=== PATIENT | male | born 1940 | race Caucasian/White ===

== ENCOUNTER 2016-09-29 12:24 | Emergency (ER) | payer MEDICARE ==
[~2016-09-29] VITALS: Ht 180.3 cm; Wt 93.0 kg
[~2016-09-29 12:24] MED LIST: AMITRIPTYLINE10 MG PO; AMITRIPTYLINE25 MG PO; AMLODIPINE BESYL5 MG PO; AMLODIPINE5 MG PO; ASPIR; ASPIRIN81 M1 PO; AZILECT1 MG PO; CALCIUM 600600 M2 PO; CALCIUM600 M2 PO; CARBIDOPA & LEV1 TA1 PO; CARBIDOPA AND L1 TAB PO; CARVEDILOL25 MG PO; CARVEDILOL6.25 MG PO; CHOLESTYRAM4 GM/5 GM PO; CLARITIN10 MG PO; CLOPIDOGREL75 MG PO; COREG6.25 MG PO; DONNATAL1 CA1 PO; DOXYCYCLINE100 M3 PO; EPI EZ PEN1 MG/ML IM; FISH OIL; FLOMAX0.4 MG PO; HYDROCODONE BIT1 T11 PO; HYPOTHALMEX; LOMOTIL 0.025 M1 TAB PO; MEDROL DOSEPAK4 MG PO; METOCLOPRAMIDE10 MG PO; MIRAPEX0.125 MG PO; MIRAPEX1 MG PO; MIRAPEX1.5 MG PO; Metformin Hydr500 MG PO; NORCO 5-325 TA1 EACH PO; NORTRIPTYLINE10 MG PO; NORVASC10 MG PO; NOVAPLUS V0.09 MG/Ac INH; OMEPRAZOLE DR20 M1 PO; PANTOPRAZOLE SO40 MG PO; PREDNICOT20 MG PO; PREDNISONE10 MG PO; SIMVASTATIN40 MG PO; TAMSULOSIN HCL0.4 MG PO; VITAMIN B121000 MC1 PO; VITAMIN B121000 MC2 PO; ZANTAC15 MG/ML PO; ZETIA10 MG PO; ZOFRAN ODT4 MG SL
[2016-09-29 12:44] VITALS: BP 176/80
[2016-09-29] MEDS ORDERED: ULTRAM50 MG PO (14:55)
== END 2016-09-29 15:02 | disposition home or self-care (01) ==
LOC: ED 12:24
DX: M51.9 Unspecified thoracic, thoracolumbar and lumbosacral intervertebral disc disorder (principal); Z88.8 Allergy status to other drugs, medicaments and biological substances; Z79.82 Long term (current) use of aspirin; Z79.899 Other long term (current) drug therapy

== ENCOUNTER 2016-12-07 01:58 | Emergency (ER) | payer MEDICARE ==
[~2016-12-07] VITALS: Ht 177.8 cm; Wt 90.7 kg
[~2016-12-07 01:58] MED LIST changes: +ULTRAM50 MG PO
[2016-12-07] MEDS ORDERED: CALCIUM + VIT1 EACH PO (02:10)
[2016-12-07] MEDS ORDERED: ATORVASTATIN CA10 M1 PO (02:11)
[2016-12-07 02:12] VITALS: BP 153/67
[2016-12-07] MEDS ORDERED: ZANTAC 150150 MG PO (02:12)
[2016-12-07] MEDS ORDERED: NAPROSYN EC375 MG PO (03:27)
== END 2016-12-07 04:12 | disposition home or self-care (01) ==
LOC: ED 01:58
DX: S60.221A Contusion of right hand, initial encounter (principal); Z95.0 Presence of cardiac pacemaker; Z90.49 Acquired absence of other specified parts of digestive tract; Z86.73 Personal history of transient ischemic attack (TIA), and cerebral infarction without residual deficits; I25.10 Atherosclerotic heart disease of native coronary artery without angina pectoris; I50.9 Heart failure, unspecified; I11.0 Hypertensive heart disease with heart failure; K21.9 Gastro-esophageal reflux disease without esophagitis; E78.5 Hyperlipidemia, unspecified; Z88.8 Allergy status to other drugs, medicaments and biological substances; Z79.82 Long term (current) use of aspirin; Z79.899 Other long term (current) drug therapy; W18.09XA Striking against other object with subsequent fall, initial encounter; Y93.89 Activity, other specified; Y92.9 Unspecified place or not applicable; Y99.9 Unspecified external cause status

== ENCOUNTER 2016-12-16 18:22 | Emergency (ER) | payer MEDICARE ==
[~2016-12-16] VITALS: Ht 177.8 cm; Wt 90.7 kg
[~2016-12-16 18:22] MED LIST changes: +ATORVASTATIN CA10 M1 PO; +CALCIUM + VIT1 EACH PO; +NAPROSYN EC375 MG PO; +ZANTAC 150150 MG PO
[2016-12-16 18:26] VITALS: BP 166/75
[2016-12-16] MEDS ORDERED: IBU800 MG PO (20:14)
== END 2016-12-16 20:25 | disposition home or self-care (01) ==
LOC: ED 18:22
DX: S40.011A Contusion of right shoulder, initial encounter (principal); M19.011 Primary osteoarthritis, right shoulder; I25.10 Atherosclerotic heart disease of native coronary artery without angina pectoris; I11.0 Hypertensive heart disease with heart failure; I50.32 Chronic diastolic (congestive) heart failure; E78.5 Hyperlipidemia, unspecified; K21.9 Gastro-esophageal reflux disease without esophagitis; G20 Parkinson's disease; E11.9 Type 2 diabetes mellitus without complications; Z86.73 Personal history of transient ischemic attack (TIA), and cerebral infarction without residual deficits; Z85.46 Personal history of malignant neoplasm of prostate; Z96.89 Presence of other specified functional implants; Z88.8 Allergy status to other drugs, medicaments and biological substances; Z79.82 Long term (current) use of aspirin; Z79.899 Other long term (current) drug therapy

== ENCOUNTER 2017-01-08 00:06 | Emergency (ER) | payer MEDICARE ==
[~2017-01-08] VITALS: Ht 177.8 cm; Wt 90.7 kg
[~2017-01-08 00:06] MED LIST changes: +IBU800 MG PO
[2017-01-08 00:15] VITALS: BP 177/58
== END 2017-01-08 01:40 | disposition home or self-care (01) ==
LOC: ED 00:06
DX: S80.212A Abrasion, left knee, initial encounter (principal); Z88.8 Allergy status to other drugs, medicaments and biological substances; Z79.82 Long term (current) use of aspirin; Z79.899 Other long term (current) drug therapy; W19.XXXA Unspecified fall, initial encounter; Y93.89 Activity, other specified; Y92.89 Other specified places as the place of occurrence of the external cause; Y99.8 Other external cause status

== ENCOUNTER → 2017-01-22 | Outpatient (CLI) | payer MEDICARE ==
[2017-01-22 13:01] LABS: SGOT/AST 38 IU/L (3-35); SGPT/ALT 33 U/L (12-78)
[2017-01-22 13:04] LABS: CHOLESTEROL 116 mg/dL (<200); HDL CHOLESTEROL 43 mg/dl (40-60); LDL CHOLESTEROL 48 mg/dL (9-159); TRIGLYCERIDES 125 mg/dl (<150); VLDL CHOLESTEROL 25 mg/dL (6-40)
== END | disposition home or self-care (01) ==
LOC: LAB 11:47
PROVIDERS: Internal Medicine Interventional Cardiology
DX: E78.2 Mixed hyperlipidemia (principal)

== ENCOUNTER 2017-01-28 23:21 | Emergency (ER) | payer MEDICARE ==
[~2017-01-28] VITALS: Ht 180.3 cm; Wt 90.7 kg
[2017-01-28 23:34] VITALS: BP 186/62
== END 2017-01-29 00:29 | disposition home or self-care (01) ==
LOC: ED 23:21
DX: S21.139A Puncture wound without foreign body of unspecified front wall of thorax without penetration into thoracic cavity, initial encounter (principal); X58.XXXA Exposure to other specified factors, initial encounter; Y93.89 Activity, other specified; Y92.89 Other specified places as the place of occurrence of the external cause; Y99.8 Other external cause status; Z88.8 Allergy status to other drugs, medicaments and biological substances; Z79.82 Long term (current) use of aspirin; Z79.899 Other long term (current) drug therapy

== ENCOUNTER 2017-02-08 19:13 | Emergency (ER) | payer MEDICARE ==
[~2017-02-08] VITALS: Ht 180.3 cm; Wt 90.7 kg
[2017-02-08 19:39] VITALS: BP 114/53
== END 2017-02-08 20:34 | disposition home or self-care (01) ==
LOC: ED 19:13
DX: S61.011A Laceration without foreign body of right thumb without damage to nail, initial encounter (principal); I25.10 Atherosclerotic heart disease of native coronary artery without angina pectoris; I11.0 Hypertensive heart disease with heart failure; I50.9 Heart failure, unspecified; K21.9 Gastro-esophageal reflux disease without esophagitis; E78.5 Hyperlipidemia, unspecified; Z85.46 Personal history of malignant neoplasm of prostate; Z86.73 Personal history of transient ischemic attack (TIA), and cerebral infarction without residual deficits; Z98.890 Other specified postprocedural states; Z90.49 Acquired absence of other specified parts of digestive tract; Z95.0 Presence of cardiac pacemaker; Z79.899 Other long term (current) drug therapy; Z79.82 Long term (current) use of aspirin; M19.011 Primary osteoarthritis, right shoulder; Z88.8 Allergy status to other drugs, medicaments and biological substances; W26.0XXA Contact with knife, initial encounter; Y93.89 Activity, other specified; Y92.89 Other specified places as the place of occurrence of the external cause; Y99.9 Unspecified external cause status

== ENCOUNTER → 2017-02-14 | Outpatient (CLI) | payer MEDICARE | END | disposition home or self-care (01) | LOC: RAD 11:50 | DX: R06.02 Shortness of breath (principal); I10 Essential (primary) hypertension; Z95.2 Presence of prosthetic heart valve; Z95.0 Presence of cardiac pacemaker; Z86.79 Personal history of other diseases of the circulatory system ==

== ENCOUNTER 2017-03-09 12:52 | Emergency (ER) | payer MEDICARE ==
[~2017-03-09] VITALS: Wt 90.7 kg
[2017-03-09 13:01] VITALS: BP 118/59
== END 2017-03-09 14:27 | disposition home or self-care (01) ==
LOC: ED 12:52
DX: S50.02XA Contusion of left elbow, initial encounter (principal); S50.12XA Contusion of left forearm, initial encounter; Z88.8 Allergy status to other drugs, medicaments and biological substances; Z79.82 Long term (current) use of aspirin; Z79.899 Other long term (current) drug therapy; W19.XXXA Unspecified fall, initial encounter; Y93.9 Activity, unspecified; Y92.9 Unspecified place or not applicable; Y99.9 Unspecified external cause status

== ENCOUNTER 2017-05-06 19:10 | Inpatient (IN) | payer MEDICARE ==
[~2017-05-06] VITALS: Ht 177.8 cm; Wt 89.4 kg
[2017-05-06 19:22] VITALS: BP 134/59
[2017-05-06 20:21] VITALS: BP 139/66
[2017-05-06 20:33] LABS: BASO % 0.4 % (0.0-1.0); EOS # 0.7 10*3/uL (0.0-0.4); EOS % 9.4 % (1.0-4.0); HEMATOCRIT 32.5 % (42.0-52.0); LYMPH # 1.9 10*3/uL (1.3-4.4); LYMPH % 24.3 % (27.0-41.0); MEAN CELL VOLUME 70.2 fl (80.0-94.0); MEAN CORPUSCULAR HGB 21.6 pg (27.0-31.0); MEAN CORPUSCULAR HGB CONC 30.8 g/dl (33.0-37.0); MEAN PLATELET VOLUME 9.3 fl (9.6-12.3); MONO # 0.7 10*3/uL (0.1-1.0); MONO % 9.6 % (3.0-9.0); NEUT # 4.3 10*3/uL (2.3-7.9); PLATELET COUNT AUTOMATED 253 10*3/uL (130-400); RED BLOOD COUNT 4.63 10*6/uL (4.50-5.90); RED CELL DISTRI WIDTH 17.3 % (0-14.5); WHITE BLOOD COUNT 7.7 10*3/uL (4.8-10.8)
[2017-05-06 20:49] LABS: ALBUMIN 3.6 gm/dl (3.1-4.5); ALKALINE PHOSPHATASE 96 U/L (45-117); BUN 8 mg/dl (7-24); CHLORIDE 102 mmol/L (98-107); CREATININE 0.73 mg/dL (0.70-1.30); POTASSIUM 3.9 mmol/L (3.5-5.1); SGOT/AST 23 IU/L (3-35); SGPT/ALT 15 U/L (12-78); SODIUM 138 mmol/L (136-145); TOTAL PROTEIN 6.5 gm/dL (6.4-8.2)
[2017-05-06 21:08] LABS: BILIRUBIN NEGATIVE (NEGATIVE); BLOOD NEGATIVE (NEGATIVE); CLARITY CLEAR (CLEAR); COLOR YELLOW (YELLOW); GLUCOSE NEGATIVE (NEGATIVE); KETONE NEGATIVE (NEGATIVE); LEUKO ESTERASE NEGATIVE (NEGATIVE); NITRITE NEGATIVE (NEGATIVE); SPECIFIC GRAVITY <= 1.005 (1.005-1.030); UROBILINOGEN 0.2 E.U./dl (0.2-1.0)
[2017-05-06 21:21] LABS: RBC 0-2 rbc/hpf (0-2); WBC 0-2 wbc/hpf (0-5)
--- NOTE | 2017-05-06 21:26 | NUR ---
3CM CLOSED LACERATION TO OCCIPITAL AREA WITH DRIED
[2017-05-06 22:55] VITALS: BP 138/61
[2017-05-06 23:45] VITALS: BP 150/69
--- NOTE | 2017-05-07 00:23 | NUR ---
PT HAS ABRASIONS ON BLE AND SMALL ABRASION ON CHEST. NO OTHER WOUNDS NOTED
[2017-05-07 00:30] VITALS: BP 184/86
--- NOTE | 2017-05-07 00:30 | NUR ---
A 77, admitted to 5E, under the services of ELOY Hwang DO with a diagnosis of FALL. Chief complaint is FALL. Patient arrived via bed from ER. Monitor applied. Initial assessment completed. Vital signs taken and recorded. ELOY HWANG DO notified of admission to the unit. Orders received. See assessment for past medical history, medications and allergies. Patient and/or family oriented to unit. visitation policy reviewed. Clothing/patient valuable form completed. POOJA SHORT
--- NOTE | 2017-05-07 00:46 | NUR ---
PT HAS CLOSED LACERATION TO BACK OF HEAD, PICTURE TAKEN. PT ALSO HAS MULTIPLE SCABBED AREAS TO BLE AND SCABBED AREA TO CENTER OF CHEST. NO PICTURES OF THESE TAKEN. SEE WOUND ASSESSMENT SCREEN
[2017-05-07] MEDS ORDERED: VITAMIN D31000 UNI1 PO (01:27)
[2017-05-07] MEDS ORDERED: MIRALAX POWDER255 G1 PO (01:27)
[2017-05-07] MEDS ORDERED: VESICARE5 MG PO (01:28)
[2017-05-07] MEDS ORDERED: NORTRIPTYLINE H10 M1 PO (01:29)
[2017-05-07] MEDS ORDERED: CALCIUM500 M1 PO (01:30)
--- NOTE | 2017-05-07 01:31 | NUR ---
MED REC UP TO DATE PER PT MED LIST
--- NOTE | 2017-05-07 01:36 | NUR ---
DR STAPLES MADE AWARE THAT MED REC UP TO DATE AND PT HAS NOT RECEIVED PM MEDICATIONS. PT TAKES COREG AT HOME AND BP 184/86. ALSO MADE HIM AWARE OF PT WOUNBDS, NO WOUND CARE ORDERS RECEIVED. ORDER RECEIVED TO GIVE PT DOSE OF HOME COREG NOW.
--- NOTE | 2017-05-07 02:57 | NUR ---
PO COREG GIVEN PER DR STAPLES ORDERS AT THIS TIME. MED TAKEN WHOLE IN PUDDING WITHOUT DIFFICULTY.
[2017-05-07 04:00] VITALS: BP 124/62
--- NOTE | 2017-05-07 04:00 | NUR ---
BP RECHECK 124/62
[2017-05-07 06:41] LABS: BASO % 0.4 % (0.0-1.0); EOS # 0.7 10*3/uL (0.0-0.4); EOS % 9.6 % (1.0-4.0); HEMATOCRIT 30.6 % (42.0-52.0); HEMOGLOBIN 9.1 g/dl (14.0-18.0); LYMPH # 1.9 10*3/uL (1.3-4.4); LYMPH % 25.8 % (27.0-41.0); MEAN CELL VOLUME 70.2 fl (80.0-94.0); MEAN CORPUSCULAR HGB 20.9 pg (27.0-31.0); MEAN CORPUSCULAR HGB CONC 29.7 g/dl (33.0-37.0); MEAN PLATELET VOLUME 9.1 fl (9.6-12.3); MONO # 0.8 10*3/uL (0.1-1.0); MONO % 10.8 % (3.0-9.0); NEUT % 53.1 % (47.0-73.0); PLATELET COUNT AUTOMATED 241 10*3/uL (130-400); RED BLOOD COUNT 4.36 10*6/uL (4.50-5.90); RED CELL DISTRI WIDTH 17.2 % (0-14.5); WHITE BLOOD COUNT 7.4 10*3/uL (4.8-10.8)
[2017-05-07 07:01] LABS: ACT PARTIAL THROMBO TIME 24.4 SECONDS (20.8-31.5)
[2017-05-07 07:05] LABS: BUN 7 mg/dl (7-24); CHLORIDE 102 mmol/L (98-107); CREATININE 0.62 mg/dL (0.70-1.30); POTASSIUM 3.7 mmol/L (3.5-5.1); SODIUM 138 mmol/L (136-145)
[2017-05-07 07:11] LABS: THYROID STIM HORMONE (HS) 0.902 uIU/ml (0.358-4.75)
--- NOTE | 2017-05-07 07:42 | NUR ---
Shift chart check completed.
[2017-05-07 07:50] LABS: VITAMIN D, 25-HYDROXY 27.6 ng/mL (30-100)
[2017-05-07 08:00] VITALS: BP 145/61
--- NOTE | 2017-05-07 09:00 | NUR ---
Brush Cutter in to talk to patient. Patient states lives at home with and daughter. There are fe steps in the home. Physician: ritika pearson Pharmacy: [facility] health services: none Patient's level of ADLs: MINIMAL ASSIST Patient has working utilities: all working DME: walker, electric scooter Follow-up physician's appointment after d/c: will be made by hospitalist nurse director upon discharge Does patient want to access PORTAL?: no Discharge plan discussed with patient and daughter, patient lives at home with and daughter, uses an electri scooter or walker, patient has had a fall at home and would like to go to [place] for rehab prior to going back home, marriage and family social worker will make referral. HARITHA BERRIOS
--- NOTE | 2017-05-07 09:08 | NUR ---
MEDS VERIFIED WITH JAILYN AT [facility]
--- NOTE | 2017-05-07 09:11 | NUR ---
NOTIFIED DR STAPLES THAT MEDS WERE VERIFIED AND THAT THE DOSAGE WAS CHANGED ON THE COREG.
--- NOTE | 2017-05-07 10:00 | NUR ---
SPOKE WITH DR MCFARLANE. ADVISED HIM THAT PATIENT'S HOME MEDS WERE VERIFIED AND HAVE NOT BEEN ORDERED YET. HE IS ALSO AWARE THAT COREG DOSE IS DIFFERENT THEN WHAT IS CONTINUED. HE STATED HE WOULD ORDER HOME MEDS SHORTLY.
[2017-05-07 12:00] VITALS: BP 152/55
--- NOTE | 2017-05-07 12:18 | NUR ---
PHYSICAL THERAPY PAtient evaluated on 5, full evaluation to follow. Continue [facility] PT as per plan of care with fall, Parkinsons, recent fall at home with closed head injury and decreased safety precautions. May benfit from SNF for impaired mobility in order to return to home safely at [facility]. PAtient is high complexity via chart review, tests and evaluation: 30960. Thank you for this referral. Ellen Braswell,PT
--- NOTE | 2017-05-07 13:15 | NUR ---
NORMA JAIN [id number] Please refer to the physician's history and physical for past medical history, comorbid conditions, and allergies. Diagnosis: FALL CAUSE OF ACCIDENTAL INJURY AT HOME PLAC Arnoldo Score: 14,MODERATE RISK WOUND DESCRIPTIONS: Location of the wound: OCCIPITAL HEAD Type of wound: TRAUMATIC Thickness: Partial Size: 0.2cm x 2.3cm x 0.1cm Tunneling: none Undermining: none Sinus Tract: none Presence of Exudate: Serous Amount: Light Color: Red Odor: None Periwound Skin Appearance: Normal Wound edges: approximated Pain (associated with wound): patient denied pain at time of assessment How does patient state this happened? Patient stated he fell backwards at home Patient stated when he fell he had a "splinter and just ripped it out" in his left forearm. Patient stated this area did not bleed when he took out the "splinter." This nurse unable to visualize area due to IV dressing intact. Patient has four scabbed areas to his mid chest and patient stated they are itchy. Surface the patient is resting on: Isoflex SKIN PREVENTION RECOMMENDATION: 1. Pressure redistribution support surface as appropriate 2. Elevate heels 3. Remove boots/TEDS every shift and reapply 4. Head of bed 30 degrees as tolerated 5. Assess nutrition and hydration 6. Manage moisture 7. Avoid the use of containment devices while in bed 8. Use absorptive products on surfaces limit layers of linens on bed 9. Turn and reposition every 1-2 hours in bed and every 1 hour in chair as tolerated 10. Weight shifts every 15 minutes while up in chair 11. Offloading with pillows or device to keep heels elevated off bed 12. Monitor skin at least every shift 13. Inspect under medical devices twice a day WOUND TREATMENT RECOMMENDATIONS: Antibiotic ointment and left open to air. Hydrocortizone cream to itchy area on chest.
--- NOTE | 2017-05-07 14:09 | NUR ---
Occupational Therapy evaluation completed on 5 with full eval to follow. Precautions include fall risk, parkinsons,ww use,moderate complexity level. Recommend OT per POC to address self care, safety w/ ww, functional transfers, standing tolerance and EC/WS education and SNF upon d/c to enable safe return home with . Thank you for this referral. Kayce Liang OTR/L
--- NOTE | 2017-05-07 14:46 | NUR ---
NOTIFIED DR STAPLES THAT HOME MEDS STILL NOT VERIFIED
--- NOTE | 2017-05-07 14:49 | NUR ---
DR STAPLES NOTIFIED THAT PATIENT'S HOME MEDS STILL NOT ORDERED
--- NOTE | 2017-05-07 15:31 | NUR ---
PATIENT SEEN 1:1 OT THIS DATE 20 MINUTES. PATIENT IDENTIFIED BY NAME AND DATE OF . PATIENT IN BED AND WILLING TO COMPLETE THERAPY TO TOLERANCE THIS DATE. PATIENT COMPLETED SUPINE TO SIT SBA AND SIT TO STAND MIN A X 1 AND CGA X 5 FROM BED WITH MOD VERBAL CUES TECH/FORM. PATIENT IMPULSIVE AND REQUIRES VERBAL INSTRUCTION FOR FALL PREVENTION AND SAFETY. PATIENT COMPLETED FUNCTIONAL AMBULATION USE FWW SHORT DISTANCE TO BATHROOM CGA AND BACK TO BED WITH MIN A MANAGING FWW WITH TURNS. PATIENT COMPLETED STAND TOLERANCE ACTIVITY USE FWW SUPPORT APPROX 4 MINUTES REACHING OVER HEAD ONE UE AT A TIME. PATIENT COMPLETED SIT TO SUPINE BED SBA WITH MIN VERBAL CUES TECH/FORM USE RAILS TO SCOOT SELF UP IN BED. PATIENT WITH NO OTHER NEEDS VERBALIZED. BED ALARM SET. ANDI VEGA
--- NOTE | 2017-05-07 15:44 | NUR ---
REFERAL MADE TO JAILYN AT [facility].
[2017-05-07 16:00] VITALS: BP 182/74
--- NOTE | 2017-05-07 16:25 | NUR ---
NOTIFIED DR NICHOLS THAT PATIENT'S FAMILY IS REQUESTING HIS PARKINSON'S MEDICATION. ADVISED HER THAT FAMILY STATED THEY WOULD BRING IT FROM HOME. SHE STATED THAT WOULD BE FINE. NOTIFIED FAMILY. THEY ARE GOING HOME TO GET IT NOW.
--- NOTE | 2017-05-07 19:56 | NUR ---
PATIENT AWAKE IN BED, ALERT AND ORIENTED X3 AT THIS TIME. PATIENT DENIES ANY PAIN ASSOCIATED WITH HEAD LACERATION. NO COMPLAINTS VERBALIZED. WILL MONITOR. CALL LIGHT USE ENCOURAGED. CALL LIGHT IN REACH. BED ALARM INTACT.
[2017-05-07 20:00] VITALS: BP 158/56
[2017-05-08] VITALS: BP 151/67
--- NOTE | 2017-05-08 04:13 | NUR ---
PATIENT ASLEEP IN BED AT THIS TIME. RESPIRATIONS EASY. NO S/S OF DISTRESS NOTED. ON ROOM AIR. CALL LIGHT LEFT IN REACH. BED ALARM INTACT.
[2017-05-08 07:00] LABS: BASO % 0.4 % (0.0-1.0); EOS # 0.7 10*3/uL (0.0-0.4); HEMATOCRIT 31.7 % (42.0-52.0); HEMOGLOBIN 9.7 g/dl (14.0-18.0); LYMPH # 2.3 10*3/uL (1.3-4.4); LYMPH % 28.2 % (27.0-41.0); MEAN CELL VOLUME 70.4 fl (80.0-94.0); MEAN CORPUSCULAR HGB 21.6 pg (27.0-31.0); MEAN CORPUSCULAR HGB CONC 30.6 g/dl (33.0-37.0); MEAN PLATELET VOLUME 10.2 fl (9.6-12.3); MONO # 0.9 10*3/uL (0.1-1.0); MONO % 11.5 % (3.0-9.0); NEUT # 4.1 10*3/uL (2.3-7.9); NEUT % 50.5 % (47.0-73.0); PLATELET COUNT AUTOMATED 260 10*3/uL (130-400); RED CELL DISTRI WIDTH 17.3 % (0-14.5)
[2017-05-08 07:25] LABS: BUN 9 mg/dl (7-24); CHLORIDE 101 mmol/L (98-107); CREATININE 0.66 mg/dL (0.70-1.30); POTASSIUM 3.5 mmol/L (3.5-5.1); SODIUM 138 mmol/L (136-145)
--- NOTE | 2017-05-08 07:45 | NUR ---
Shift chart check completed.
[2017-05-08 08:00] VITALS: BP 142/62; BP 166/70
--- NOTE | 2017-05-08 08:00 | NUR ---
PT SLEEPING EASILY AWAKEN A&O X 3. ELEAZAR [facility] [facility]. VERY PLEASANT AND SMILING. LACERATION ON BACK OG THE HEAD FROM HIS FALL AT HOME IS SCAPPED OVER, NO REDNESS, NO DRAINAGE. LACERATION ON ABDOMEN PINK, SCAPPING, NO DRAINAGE. OLD SCRAPS AND SCABD ON LOWER EXTERMITIES NO DRAINAGE, NO REDNESS. NO C/O PAIN AT THIS TIME. CONTINUE TO ASSESS NATALEE CHRISTIE
--- NOTE | 2017-05-08 08:30 | NUR ---
PATIENT IS RESTING IN BED. HE DENIES ANY PAIN OR DISCOMFORT. PATIENT HAS A STUDENT NURSE FROM [facility] TODAY. PATIENT IS A&OX3 WITH PERIODS OF FORGETFULLNESS. PATIENT DENIES ANY SOB. ROOM AIR. DENIES ANY CP. NO EDEMA. PPP. PATIENT HAS NORMOACTIVE BOWEL SOUNDS. DENIES ANY DYSURIA. HAS URINAL AT BEDSIDE. USES BR WITH ASSIST TIMES ONE. DOES HAVE A SHUFFLED GAIT. PATIENT HAS A SMALL LACERATION TO THE BACK OF HIS HEAD WITH MINIMAL DRAINAGE. HE ALSO HAS A SMALL AREA OF IRRITATION TO HIS CHEST. WILL CONTINUE TO MONITOR.
--- NOTE | 2017-05-08 08:51 | NUR ---
PHYSICAL THERAPY Patient presented to therapy with report of feeling better and wanting to do therapy. Patient performed supine to sitting at EOB and sit to stand transfers with SBA. Patient performed gait with W/W and CGA X 1 for 210' x 1. Patient then sat at EOB and performed seated ther ex for strengthening the bilateral UEs and LEs x 10 each exercise in all planes of movement. Patient's breakfast arrived and therapy was stopped. Patient was left in seated position in bedside chair with body alarm attached to patient. Patient tolerated ther ex and gait well with no significant LOB with gait or standing ther ex. Patient was 1:1 with this AUTO SELF SERVICE STATION ATTENDANT for 25 minutes total. Junito Hill AUTO SELF SERVICE STATION ATTENDANT 05/08/2017
--- NOTE | 2017-05-08 09:00 | NUR ---
case management visits with patient, patient will be going to [facility] when medically stable, he will need a three night stay and will be eligible to go on 05/09/17
--- NOTE | 2017-05-08 10:00 | NUR ---
PT A&O X3 VERY PLESANT CLEANED LACERATION ON THE BACK OF HIS HEAD WITH NS AND APPLIED NEOSPORIN. CLEANED LACERATION ON ABDOMEN WITH N/S AND APPLIED HYDROCORTISO CREME. NO C/O OF PAIN AT THIS TIME CONTIUNE TO MILAGROS ALBRIGHT CALL SPN
--- NOTE | 2017-05-08 11:10 | NUR ---
PATIENT SEEN 1:1 OT THIS DATE 26 MINUTES. PATIENT IDENTIFIED BY NAME AND DATE OF . PATIENT COMPLETED SIT TO STAND RECLINER CGA WITH MIN VERBAL CUES TECHNIQUE. PATIENT COMPLETED FUNCTIONAL AMBULATION USE FWW TO BATHROOM CGA WITH VERBAL CUES INCREASE STRIDE SECONDARY SHUFFLE STEP. PATIENT COMPLETED STAND TO SIT TOILET CGA WITH VERBAL CUES TO EASE SELF TO SITTING POSITION USE GRAB BAR. COMPLETED TOILETING MIN A WITH EDUCATION USE FWW FOR UE SUPPORT STANDING COMPONENTS. PATIENT COMPLETED STANDING AT SINK WASH HANDS CGA AND AMBULATED TO RECLINER USE FWW WITH MIN VERBAL CUES SAFETY USE FWW AND INCREASE TIME NEGOTIATING TURNS. PATIENT COMPLETED STAND TOLERANCE ACTIVITY THIS DATE WITH DYNAMIC ACTIVITY 5 MINUTES USE FWW SUPPORT. PATIENT SEATED RECLINER WITH CHAIR ALARM AND CALL LIGHT WITHIN REACH. NO FURTHER NEEDS VERBALIZED. ANDI VEGA
[2017-05-08 12:00] VITALS: BP 110/63
[2017-05-08] MEDS ORDERED: VITAMIN D31000 UNI1 PO (12:32)
[2017-05-08] MEDS ORDERED: COREG12.5 M1 PO (12:32)
--- NOTE | 2017-05-08 13:34 | NUR ---
PHYSICAL THERAPY Rolf was seen this PM 1:1 for his physical therapy session. Pt was sitting up in his bedside chair, body alarm on. With verbal cueing transfer sit/stand MOD A X 1, standing balance with wheele walker CGA X 1. Then gait with wheeled walker 195' X 1, with MIN OUTSIDE SOLAR SALES CONSULTANT X 1, verbal cueing for gait, walker turn safety with slight parkinsons gait on his right hand turn not left. Pt back up in his bedside chair, and daughter present to visit, body alarm on, Pt with call light and phone. JOSEY ALVAREZ TIP TESTER.
[2017-05-08 16:00] VITALS: BP 129/53
[2017-05-08 20:00] VITALS: BP 148/55
--- NOTE | 2017-05-08 21:38 | NUR ---
PATIENT MEDICATED WITH PO TYLENOL AND PO RESTORIL PER PRN ORDER FOR C/O HEADACHE AND SLEEPLESSNESS. WILL MONITOR EFFECTIVENESS. LACERATION TO BACK OF HEAD CLEANED AT THIS TIME PER PATIENT REQUEST. NEOSPORIN APPLIED PER ORDER. WILL MONITOR. PATIENT REPOSITIONED IN BED. BED LEFT LOCKED IN LOW POSITION, CALL LIGHT IN REACH, BED ALARM INTACT.
--- NOTE | 2017-05-08 22:23 | NUR ---
EARLIER MEDICATION APPEARS EFFECTIVE. PATIENT ASLEEP IN BED AT THIS TIME. RESPIRATIONS EASY, NO S/S OF DISTRESS NOTED. CALL LIGHT LEFT IN REACH. BED ALARM INTACT.
[2017-05-09] VITALS: BP 134/63
--- NOTE | 2017-05-09 03:52 | NUR ---
PATIENT ASSISTED TO USE URINAL AT THIS TIME AND ASSISTED BACK TO BED. BED LEFT LOCKED IN LOW POSITION, BED ALARM INTACT, CALL LIGHT LEFT IN REACH.
--- NOTE | 2017-05-09 05:50 | NUR ---
WOUND PHOTOS TAKEN AT THIS TIME FOR ANTICIPATED DISCHARGE TODAY.
--- NOTE | 2017-05-09 07:30 | NUR ---
PT A&OX3 VERY PLEASANT, EASILY DIRECTED, ELEAZAR, VS STABLE AT THE TIME OF ASSESSMENT. HEART SOUNDS NORMAL. PULSE REGULAR AND STRONG. RESP WAS NON LABORED LUNGS CLEAR BUT DIMISHED THROUGH OUT. SKIN TURGOR GOOD, SKIN PINK WARM TO TOUCH, ABD SOFT NON-DISTENED NON-TENDER. SMALL LACERATON ON THE BACK OF HIS HEAD IS SCABBED OVER, NO DRAINAGE, NO REDNESS. ABDOMEN SCRAP IS PINK TISSUE, NO DRAINAGE, SCABBING OVER. OLD SCRAPS AND SCABS ON LOWER EXTERMITES NO REDNESS, NO DRAINAGE. KNEE HIGH NAM HOSE ON PT C/O NO PAIN AT THIS TIME CONTIUNE TO ASSESS. NATALEE CALL SPN
[2017-05-09 08:00] VITALS: BP 152/70
--- NOTE | 2017-05-09 08:00 | NUR ---
PT RESTING UP IN CHAIR, EATING BREAKFAST AT THIS TIME, NO DISTRESS NOTED. PT DENIES ANY COMPLAINTS. LUNG SOUNDS CLEAR, NO SOB NOTED, ON ROOM AIR, PT DOES STATE A NON-PROD COUGH. NORMO BS X4 QUADS, DENIES N/V/D. NO EDEMA NOTED TO LOWER LEGS, NAM HOSE INTACT. LACERATION NOTED TO BACK OF HEAD, NO DRAINAGE NOTED. PT DENIES ANY PAIN. BODY ALARM INTACT. CALL LIGHT WITHIN REACH.
--- NOTE | 2017-05-09 08:38 | NUR ---
OCCUPATIONAL THERAPY CO-SIGN I approve of the Occupational Therapy notes written above. DEON MORALES OTR/Jovita
--- NOTE | 2017-05-09 10:00 | NUR ---
PT A&O X3 SITTING IN HIS CHAIR AFTER GETTING A SHOWER VERY PLEASANT. CLEANED SMALL LACERATION ON THE BACK OF HIS HEAD WITH NS AND APPLIED NEOSPORIN. CLEANED SMALL CUTS ON HIS ABDOMEN WITH NS AND APPLIED HYDROCORTISON CREME. PT C/O OF NO PAIN, DENIES ANY CHEST PAIN. LEG PAIN. CONTIUNE TO ASSESS NATALEE CALL SPN
--- NOTE | 2017-05-09 11:10 | NUR ---
PHYSICAL THERAPY Patient was sitting up EOB upon therapist arrival for am therapy visit, reporting no new c/o's. Patient transfers all SBA x 1 and ambulates with use of wh walker, 100'x 2, demonstrating increased velocity and impulsive behavior at times resulting in Poor walker navigation / safety. Patient also completed both 90 / 180 degree turns with use of wh walker, demonstrating bouts of "freezing" and needed v/c to improve safety awareness. Patient returned to bedside chair under nursing assoc Supervision, awaiting to be showered and will continue per POC as tolerated. Winston Conner, COMMUNICATIONS DEPARTMENT CHAIR
[2017-05-09 12:00] VITALS: BP 123/55
--- NOTE | 2017-05-09 12:05 | NUR ---
FLOOR NOTIFIED CM THAT PT WAS BEING DISCHARGED AT 1PM. SW NOTITIFED OF AUTO OVERHAULER TIME AND PT. SW NOTIFIED [facility] THAT PT WAS BEING DISCHARGED AT 1PM.
--- NOTE | 2017-05-09 12:08 | NUR ---
[facility] SAID OK TO DISCHARGE TIME.
[2017-05-09 13:07] VITALS: BP 126/58
--- NOTE | 2017-05-09 13:10 | NUR ---
NUR[facility]
--- NOTE | 2017-05-09 13:50 | NUR ---
Discharge instructions reviewed with patient/family. Patient receptive and verbalizes understanding. Follow-up care arranged. Written instructions given to patient/family. [facility] accompanied by family. NATALEE STINSON
--- NOTE | 2017-05-09 14:02 | NUR ---
Discharge instructions reviewed with patient/family. Patient receptive and verbalizes understanding. Follow-up care arranged. Written instructions given to patient/family. HEP LOCK REMOVED NO BLEEDING. PACKET GIVEN TO . DISCHAGRED VIA W/C CONDITION STABLE NATALEE CHRISTIE
--- NOTE | 2017-05-10 07:53 | NUR ---
PHYSICAL THERAPY CO-SIGN I approve of the Phyical Therapy notes written above. NINA CUNHA PT
== END 2017-05-09 13:50 | disposition other institution (70) | DRG 605 ==
LOC: ED 19:10 → 5E 23:50 → EDHOLD 23:50 → 5E 05-07 00:07
PROVIDERS: Emergency Medicine Emergency Medical Services; Hospitalist; Internal Medicine; ADMIT Internal Medicine
DX: S00.03XA Contusion of scalp, initial encounter (principal); E67.8 Other specified hyperalimentation; E87.2 Acidosis; G20 Parkinson's disease; I50.32 Chronic diastolic (congestive) heart failure; R73.9 Hyperglycemia, unspecified; D50.9 Iron deficiency anemia, unspecified; K21.9 Gastro-esophageal reflux disease without esophagitis; C61 Malignant neoplasm of prostate; Z95.0 Presence of cardiac pacemaker; E55.9 Vitamin D deficiency, unspecified; W18.39XA Other fall on same level, initial encounter; R29.6 Repeated falls; M51.36 Other intervertebral disc degeneration, lumbar region; I11.0 Hypertensive heart disease with heart failure; M19.011 Primary osteoarthritis, right shoulder; I25.10 Atherosclerotic heart disease of native coronary artery without angina pectoris; E78.2 Mixed hyperlipidemia; Z88.8 Allergy status to other drugs, medicaments and biological substances; Z79.899 Other long term (current) drug therapy; Z79.82 Long term (current) use of aspirin; Z86.73 Personal history of transient ischemic attack (TIA), and cerebral infarction without residual deficits; Z95.2 Presence of prosthetic heart valve; Z90.49 Acquired absence of other specified parts of digestive tract; Z82.49 Family history of ischemic heart disease and other diseases of the circulatory system; Z81.8 Family history of other mental and behavioral disorders; Z84.89 Family history of other specified conditions; Y93.89 Activity, other specified; Y99.8 Other external cause status; Y92.098 Other place in other non-institutional residence as the place of occurrence of the external cause; Z23 Encounter for immunization

== ENCOUNTER 2017-07-09 07:21 | Emergency (ER) | payer MEDICARE ==
[~2017-07-09] VITALS: Ht 175.2 cm; Wt 92.1 kg
[~2017-07-09 07:21] MED LIST changes: +CALCIUM500 M1 PO; +COREG12.5 M1 PO; +MIRALAX POWDER255 G1 PO; +NORTRIPTYLINE H10 M1 PO; +VESICARE5 MG PO; +VITAMIN D31000 UNI1 PO
[2017-07-09 09:34] VITALS: BP 162/76
== END 2017-07-09 11:04 | disposition home or self-care (01) ==
LOC: ED 07:21
DX: S20.219A Contusion of unspecified front wall of thorax, initial encounter (principal); I11.0 Hypertensive heart disease with heart failure; I50.32 Chronic diastolic (congestive) heart failure; E78.5 Hyperlipidemia, unspecified; K21.9 Gastro-esophageal reflux disease without esophagitis; M19.011 Primary osteoarthritis, right shoulder; I25.10 Atherosclerotic heart disease of native coronary artery without angina pectoris; Z86.73 Personal history of transient ischemic attack (TIA), and cerebral infarction without residual deficits; Z88.8 Allergy status to other drugs, medicaments and biological substances; Z79.899 Other long term (current) drug therapy; Z79.82 Long term (current) use of aspirin; W22.8XXA Striking against or struck by other objects, initial encounter; Y93.89 Activity, other specified; Y92.89 Other specified places as the place of occurrence of the external cause; Y99.8 Other external cause status

== ENCOUNTER 2017-07-17 02:06 | Emergency (ER) | payer MEDICARE ==
[~2017-07-17] VITALS: Ht 177.8 cm; Wt 92.1 kg
[2017-07-17 02:07] VITALS: BP 135/55
== END 2017-07-17 03:06 | disposition home or self-care (01) ==
LOC: ED 02:06
DX: S61.211A Laceration without foreign body of left index finger without damage to nail, initial encounter (principal); K21.9 Gastro-esophageal reflux disease without esophagitis; R73.9 Hyperglycemia, unspecified; I11.0 Hypertensive heart disease with heart failure; I50.9 Heart failure, unspecified; I25.10 Atherosclerotic heart disease of native coronary artery without angina pectoris; F10.10 Alcohol abuse, uncomplicated; G20 Parkinson's disease; Z79.899 Other long term (current) drug therapy; Z79.82 Long term (current) use of aspirin; Z90.49 Acquired absence of other specified parts of digestive tract; Z88.8 Allergy status to other drugs, medicaments and biological substances; Z96.89 Presence of other specified functional implants; Z86.73 Personal history of transient ischemic attack (TIA), and cerebral infarction without residual deficits; W18.09XA Striking against other object with subsequent fall, initial encounter; Y93.89 Activity, other specified; Y92.89 Other specified places as the place of occurrence of the external cause; Y99.8 Other external cause status

== ENCOUNTER 2017-07-23 15:18 | Inpatient (IN) | payer MEDICARE ==
[~2017-07-23] VITALS: Ht 180.3 cm; Wt 90.3 kg
[2017-07-23 15:26] VITALS: BP 123/46
[2017-07-23 16:00] VITALS: BP 158/58
[2017-07-23 17:10] LABS: BASO % 0.4 % (0.0-1.0); EOS # 0.5 10*3/uL (0.0-0.4); EOS % 6.3 % (1.0-4.0); HEMOGLOBIN 8.4 g/dl (14.0-18.0); LYMPH # 1.6 10*3/uL (1.3-4.4); LYMPH % 20.1 % (27.0-41.0); MEAN CORPUSCULAR HGB 20.7 pg (27.0-31.0); MEAN PLATELET VOLUME 8.8 fl (9.6-12.3); MONO # 0.9 10*3/uL (0.1-1.0); MONO % 10.9 % (3.0-9.0); NEUT # 4.8 10*3/uL (2.3-7.9); PLATELET COUNT AUTOMATED 250 10*3/uL (130-400); RED BLOOD COUNT 4.06 10*6/uL (4.50-5.90); RED CELL DISTRI WIDTH 18.1 % (0-14.5); WHITE BLOOD COUNT 7.8 10*3/uL (4.8-10.8)
[2017-07-23 17:26] LABS: ALBUMIN 3.4 gm/dl (3.1-4.5); ALKALINE PHOSPHATASE 109 U/L (45-117); BUN 11 mg/dl (7-24); CHLORIDE 103 mmol/L (98-107); CREATININE 0.76 mg/dL (0.70-1.30); POTASSIUM 3.8 mmol/L (3.5-5.1); SGOT/AST 21 IU/L (3-35); SGPT/ALT 10 U/L (12-78); SODIUM 139 mmol/L (136-145); TOTAL PROTEIN 6.2 gm/dL (6.4-8.2)
[2017-07-23 17:30] LABS: TROPONIN I < 0.015 ng/ml (<0.045)
[2017-07-23 18:19] LABS: BILIRUBIN NEGATIVE (NEGATIVE); BLOOD NEGATIVE (NEGATIVE); CLARITY CLEAR (CLEAR); COLOR YELLOW (YELLOW); GLUCOSE NEGATIVE (NEGATIVE); KETONE TRACE (NEGATIVE); LEUKO ESTERASE NEGATIVE (NEGATIVE); NITRITE NEGATIVE (NEGATIVE); SPECIFIC GRAVITY 1.015 (1.005-1.030); UROBILINOGEN 0.2 E.U./dl (0.2-1.0)
[2017-07-23 18:28] LABS: BACTERIA TRACE; MUCOUS 2+
[2017-07-23 19:13] VITALS: BP 132/78
[2017-07-23 19:55] VITALS: BP 158/58
[2017-07-23] MEDS ORDERED: CALCIUM + D SO1 EACH PO (20:23)
[2017-07-23] MEDS ORDERED: COREG6.25 MG PO (21:14)
[2017-07-24] VITALS: BP 154/60
[2017-07-24 06:35] LABS: BASO % 0.5 % (0.0-1.0); EOS # 0.6 10*3/uL (0.0-0.4); EOS % 7.3 % (1.0-4.0); HEMOGLOBIN 8.5 g/dl (14.0-18.0); LYMPH # 1.7 10*3/uL (1.3-4.4); LYMPH % 20.5 % (27.0-41.0); MEAN CELL VOLUME 68.5 fl (80.0-94.0); MEAN CORPUSCULAR HGB 20.8 pg (27.0-31.0); MEAN CORPUSCULAR HGB CONC 30.4 g/dl (33.0-37.0); MEAN PLATELET VOLUME 9.5 fl (9.6-12.3); MONO # 0.8 10*3/uL (0.1-1.0); MONO % 9.9 % (3.0-9.0); NEUT # 5.2 10*3/uL (2.3-7.9); NEUT % 61.4 % (47.0-73.0); PLATELET COUNT AUTOMATED 274 10*3/uL (130-400); RED BLOOD COUNT 4.09 10*6/uL (4.50-5.90); RED CELL DISTRI WIDTH 18.2 % (0-14.5); WHITE BLOOD COUNT 8.5 10*3/uL (4.8-10.8)
[2017-07-24 06:42] LABS: ALBUMIN 3.3 gm/dl (3.1-4.5); ALKALINE PHOSPHATASE 107 U/L (45-117); BUN 10 mg/dl (7-24); CHLORIDE 106 mmol/L (98-107); CHOLESTEROL 102 mg/dL (<200); CREATININE 0.75 mg/dL (0.70-1.30); HDL CHOLESTEROL 38 mg/dl (40-60); LDL CHOLESTEROL 47 mg/dL (9-159); PHOSPHOROUS 3.8 mg/dL (2.5-4.9); POTASSIUM 3.9 mmol/L (3.5-5.1); SGOT/AST 19 IU/L (3-35); SGPT/ALT 25 U/L (12-78); SODIUM 142 mmol/L (136-145); TOTAL IRON BINDING CAPACITY 364 ug/dl (250-450); TOTAL PROTEIN 6.2 gm/dL (6.4-8.2); TRIGLYCERIDES 86 mg/dl (<150); VLDL CHOLESTEROL 17 mg/dL (6-40)
[2017-07-24 06:48] LABS: IRON 17 ug/dL (65-175)
[2017-07-24 06:56] LABS: ACT PARTIAL THROMBO TIME 26.7 SECONDS (20.8-31.5); INTERNATIONAL NORM RATIO 1.1 (2.0-3.5)
[2017-07-24 07:53] LABS: VITAMIN D, 25-HYDROXY 16.1 ng/mL (30-100)
[2017-07-24 08:00] VITALS: BP 160/65
[2017-07-24 12:00] VITALS: BP 115/48
[2017-07-24 16:00] VITALS: BP 127/56
[2017-07-24 20:00] VITALS: BP 128/63
[2017-07-25] VITALS: BP 155/64
[2017-07-25 08:00] VITALS: BP 158/62
[2017-07-25 08:25] VITALS: BP 164/60
[2017-07-25 12:00] VITALS: BP 158/62
[2017-07-25 16:00] VITALS: BP 119/47
[2017-07-25 20:00] VITALS: BP 142/57
[2017-07-26] VITALS: BP 156/62
[2017-07-26 08:25] VITALS: BP 158/57
[2017-07-26 08:48] VITALS: BP 158/57
[2017-07-26 12:36] VITALS: BP 114/49
[2017-07-26] MEDS ORDERED: Vitamin D PO (13:16)
[2017-07-26] MEDS ORDERED: Bactroban Oint22 GM T (13:16)
[2017-07-26] MEDS ORDERED: SEPTDS PO (13:16)
[2017-07-26] MEDS ORDERED: TYLENOL325 M2 PO (13:16)
[2017-07-26] MEDS ORDERED: SLOW RELEASE I159 MG PO (13:16)
== END 2017-07-26 16:45 | disposition other institution (70) | DRG 948 ==
LOC: ED 15:18 → 5E 18:37 → EDHOLD 18:37 → 5E 19:30
PROVIDERS: Internal Medicine Hospice and Palliative Medicine; Nurse Practitioner Family
DX: R53.1 Weakness (principal); E67.8 Other specified hyperalimentation; G20 Parkinson's disease; I50.32 Chronic diastolic (congestive) heart failure; D72.810 Lymphocytopenia; I11.0 Hypertensive heart disease with heart failure; D50.9 Iron deficiency anemia, unspecified; E78.2 Mixed hyperlipidemia; R29.6 Repeated falls; K21.9 Gastro-esophageal reflux disease without esophagitis; I25.10 Atherosclerotic heart disease of native coronary artery without angina pectoris; R73.9 Hyperglycemia, unspecified; M51.36 Other intervertebral disc degeneration, lumbar region; E78.5 Hyperlipidemia, unspecified; E55.9 Vitamin D deficiency, unspecified; M19.011 Primary osteoarthritis, right shoulder; W19.XXXA Unspecified fall, initial encounter; Z95.3 Presence of xenogenic heart valve; Z95.0 Presence of cardiac pacemaker; W18.39XA Other fall on same level, initial encounter; Y93.89 Activity, other specified; Y92.89 Other specified places as the place of occurrence of the external cause; Y99.8 Other external cause status; Z79.899 Other long term (current) drug therapy; Z86.73 Personal history of transient ischemic attack (TIA), and cerebral infarction without residual deficits; Z90.49 Acquired absence of other specified parts of digestive tract; Z95.1 Presence of aortocoronary bypass graft; Z82.0 Family history of epilepsy and other diseases of the nervous system; Z88.8 Allergy status to other drugs, medicaments and biological substances; Z82.49 Family history of ischemic heart disease and other diseases of the circulatory system; Z85.46 Personal history of malignant neoplasm of prostate; S00.81XA Abrasion of other part of head, initial encounter; S80.212A Abrasion, left knee, initial encounter; S80.812A Abrasion, left lower leg, initial encounter; Z79.82 Long term (current) use of aspirin

== ENCOUNTER 2017-07-31 18:03 | Inpatient (IN) | payer MEDICARE ==
[~2017-07-31] VITALS: Ht 180.3 cm; Wt 87.7 kg
--- NOTE | ~2017-07-31 | CON ---
[place], [place] REPORT OF CONSULTATION [id number] UN[facility] #: [id number] ROOM: 507 DOCTOR: VANESSA PATEL MD BIRTHDATE: [birth year] DOS: 08/04/2017 REASON FOR CONSULTATION: Dementia and confusion. HISTORY OF PRESENT ILLNESS: The patient was seen, chart reviewed, spoke with nursing staff as well as the daughter and the who was on the bedside. The patient was pleasant and cooperative during the interview. The patient is a 77-year-old male who got admitted to the medical floor with a complaint of chest pain. The patient got admitted to the medical floor for stabilization. The patient denied being depressed, down, sad, hopeless, helpless, or any other neurovegetative signs and symptoms of depression. He reports occasional visual hallucination, but denied any other symptoms of psychosis. He denied any symptoms of bola or hypomania. The patient reports that lately he noticed that his memory has been going downhill. He said that he has a difficult time recalling events and remembering things. He did not express any other problems or concerns. PAST MEDICAL HISTORY: Significant for coronary artery disease, congestive heart failure, history of frequent falls, hyperlipidemia, hypertension, iron deficiency anemia, and Parkinson's disease. PAST PSYCHIATRIC HISTORY: The patient denied any prior psychiatric hospitalization. Denied prior suicide attempt. No suicide in the family. SUBSTANCE ABUSE HISTORY: Denied any drugs or alcohol. SOCIAL HISTORY: He was born and raised in [place]. He was residing in a rehab facility prior to coming to this hospital. He had a very good relationship with his family and they are very supportive. MENTAL STATUS EXAMINATION: The patient was pleasant and cooperative. He was alert, oriented to year, month and place. He described his mood as "okay." Affect, mood congruent. Thought process goal directed. No flight of ideas, loosening of association. He reports occasional visual hallucination in the past, but not now. Denied any auditory hallucination. No delusion or paranoia noted. He denied suicidal ideation, intent or plan. He also denied homicidal ideation, intent or plan. ASSESSMENT: 1. Delirium secondary to general medical condition (resolved). 2. Cognitive disorder, not otherwise specified. 3. Rule out major neurocognitive disorder. PLAN: 1. I will start him on Namenda 5 mg at night with a plan to titrate that up. 2. Continue redirection and supportive care. 3. The patient needs to get a psychiatric followup appointment upon discharge from this facility. [place], [place] REPORT OF CONSULTATION NAME: NORMA JAIN UNIT #: [id number] ROOM: [facility] DOCTOR: VANESSA PATEL MD BIRTHDATE: [birth year] We will sign off on this patient. VANESSA PTAEL MD CM:CONSTR:REPORT OF CONSULTATION 1143 08/04/17 1254 interface
--- NOTE | ~2017-07-31 | PR ---
[place], [place] PROGRESS NOTE NAME: NORMA JAIN [facility] #: [id number] UNIT #: [id number] ROOM: 507 DOCTOR: DARRON ERNST MD BIRTHDATE: [birth year] DOS: 08/03/2017 CARDIOLOGY PROGRESS NOTE SUBJECTIVE: The patient was seen at his bedside today, 08/03/2017, with his daughter in attendance. He is a 77-year-old man with a history of atherosclerotic heart disease and aortic stenosis, who is followed by Dr. Jeff at [facility]. He had a 5-vessel bypass in 1999. In 2013, he developed critical aortic stenosis, which was treated with a TAVR. He had a stress test and catheterization as part of his preoperative assessment and was told that all his grafts were open, but those records are not currently available to us. 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 He presents to the hospital now after falling in rehab and having a heavy sensation in his chest. The sensation seemed to be muscular on my initial evaluation, but given his history, we did proceed with a pharmacologic stress test. He tolerated the study well. The images did show a mildly enlarged left ventricle, but no transient cavity dilation. Left ventricular systolic function was normal with an ejection fraction of 63%. He did have small area of ischemia involving the basal anterior wall. The distal anterior wall and apex as well as the other cortes were all well perfused. The study was consistent with single vessel coronary artery disease and no more than moderate risk for future cardiac events. I discussed this with the patient and his family and we have agreed that medical therapy is the most appropriate approach at this time. PHYSICAL EXAMINATION: VITAL SIGNS: Today his pulse is 60 and regular, blood pressure is 102/48. He is afebrile. NECK: Supple. He has no jugular distention or hepatojugular reflux. Carotids are full. LUNGS: Respirations are unlabored. His chest is clear to auscultation and percussion. HEART: Has a regular rhythm. He has grade 2/6 systolic murmur along the left sternal border. No diastolic murmurs are present. He had a fourth heart sound, but no third heart sound. ABDOMEN: Benign. EXTREMITIES: Showed no edema. IMPRESSION: 1. Atypical chest pain, most likely musculoskeletal in origin. 2. History of atherosclerotic heart disease, status post bypass surgery 18 years ago. 3. Status post aortic valve replacement utilizing transcatheter aortic valve replacement technique. 4. Sick sinus syndrome, status post pacemaker. 5. Hypertension. 6. Hyperlipidemia. 7. Chronic diastolic heart failure. 8. Abnormal stress test, indicating proximal anterior wall ischemia. Overall, left ventricular function is normal. The study is consistent with no more than [place], [place] PROGRESS NOTE [facility]: [id number] UNIT #: [id number] ROOM: 507 DOCTOR: DARRON ERNST MD BIRTHDATE: [birth year] moderate risk and is best treated medically. PLAN: The patient's beta-blockers have been adjusted and he is tolerating this well. We would support sending him back to the [facility] on his current regimen and we will be available to see him if needed. I thank the hospitalist physicians for asking our advice regarding his care. DARRON ERNST MD CM:PNTRANS [id number] DARRON ERNST MD 08/03/17 1658 interface
--- NOTE | ~2017-07-31 | PR ---
[place], [place] PROGRESS NOTE NAME: NORMA JAIN [facility] #: [id number] UNIT #: [id number] ROOM: 507 DOCTOR: DARRON ERNST MD BIRTHDATE: [birth year] DOS: 08/02/2017 SUBJECTIVE: The patient was seen in the Cardiology Department just prior to his stress test today. He is a 77-year-old man with a history of atherosclerotic heart disease and aortic stenosis, who is followed by Dr. Jeff at the [facility]. He had a 5-vessel bypass in 1999. In 2013, he developed critical aortic stenosis, which was treated with TAVR. As part of his preoperative assessment, he did have a stress test and catheterization and was told that all of his grafts were open and that his heart was otherwise healthy. He subsequently developed heart block and bradycardia which required placement of a permanent DDD pacemaker. He presents to the hospital now after falling at rehab and having heaviness in his chest. We were not sure if the chest heaviness was due to muscular injury or recurrent coronary ischemia and therefore, he is scheduled for stress test today. PHYSICAL EXAMINATION: VITAL SIGNS: Today, his pulse is 60 and regular, blood pressure is 169/75. He is afebrile. He weighs 87.7 kg and has a body mass index of 27. HEENT: Normocephalic and atraumatic. Extraocular muscles are intact. NECK: Supple. He has no jugular distention. Carotids are full. LUNGS: Respirations are unlabored. His chest is clear. HEART: Has a regular rhythm. He has a fourth heart sound. He has a grade 1/6 systolic murmur along the left sternal border, but no diastolic murmur. ABDOMEN: Benign. EXTREMITIES: Showed no edema. Serial troponin levels have been unremarkable. They are measurable but not elevated. IMPRESSION: 1. Atypical chest pain, which may be musculoskeletal in origin, especially considering his recent falling. 2. History of atherosclerotic heart disease, status post bypass surgery 18 years ago. 3. Status post aortic valve replacement utilizing TAVR technique. 4. History of sick sinus syndrome, status post pacemaker placement. 5. Hypertension. 6. Hyperlipidemia. 7. Chronic diastolic heart failure. PLAN: We will proceed with a pharmacologic stress test. Further recommendations will depend upon the results of his stress test. I thank the hospitalist physicians for asking our advice regarding his care. [place], [place] PROGRESS NOTE NAME: NORMA JAIN UNIT #: [id number] ROOM: 507 DOCTOR: DARRON ERNST MD BIRTHDATE: [birth year] DARRON ERNST MD CM:PNTRANS [id number] DARRON ERNST MD 08/02/17 1326 interface
--- NOTE | ~2017-07-31 | CON ---
[place], [place] REPORT OF CONSULTATION NAME: NORMA JAIN [facility] #: [id number] UNIT #: [id number] ROOM: 507 DOCTOR: DARRON ERNST MD BIRTHDATE: [birth year] DOS: 08/01/2017 CHIEF COMPLAINT: Chest pain. HISTORY OF PRESENT ILLNESS: The patient is a 77-year-old man who does have a history of atherosclerotic heart disease and aortic stenosis. The patient has been followed by Dr. Jeff from the [facility]. He had a 5-vessel bypass in 1999. In 2013, he developed critical aortic stenosis and did undergo TAVR. As part of his preoperative assessment prior to the TAVR, he did have a stress test and catheterization. He was told that all of his grafts were open and that his heart was otherwise healthy. He also subsequently had heart block and bradycardia which required pacer insertion. The patient is in a rehab facility. Recently, he has fallen twice. He states that since he has fallen. He has had a heaviness in his chest as well as tenderness in his anterior chest. He told the staff at the rehab facility and he was sent to the hospital for further assessment. PAST MEDICAL HISTORY: Includes: 1. Coronary artery disease, status post 5-vessel bypass in 1999. 2. Critical aortic stenosis, status post TAVR in 2013 at the [facility]. 3. Sick sinus syndrome, status post dual-chamber pacemaker around 2013. 4. Essential hypertension. 5. Hyperlipidemia. 6. Chronic diastolic heart failure, which is well compensated. 7. Parkinson's disease. 8. History of prostate cancer. 9. History of transient ischemic attacks. Most recent echocardiogram 04/03/2016 was a technically difficult study demonstrating mild left ventricular hypertrophy, normal wall motion, and ejection fraction of 65%. The aortic valve appeared to be well seated and functioning normally. MEDICATIONS: Prior to admission, acetaminophen p.r.n., amlodipine 5 mg b.i.d., aspirin 81 mg per day, atorvastatin 10 mg every day, calcium with vitamin D 2 tablets daily, carbidopa with levodopa 2 tablets q.i.d., carvedilol 6.25 mg b.i.d., iron sulfate 159 mg b.i.d., nortriptyline 10 mg at bedtime, pantoprazole 40 mg daily, MiraLax 17 grams daily, Mirapex 1.5 mg t.i.d., ranitidine 150 mg at bedtime, rasagiline 1 mg daily, VESIcare 5 mg daily, tamsulosin 0.4 mg b.i.d., vitamin D 1000 units daily, and Bactroban ointment daily. ALLERGIES: The patient has an allergy to quinapril. REVIEW OF SYSTEMS: The patient denies diplopia or loss of vision. He does have bradykinesia. He denies syncope. He does have poor balance and falls easily. He walks with a walker. He denies focal weakness. He denies nausea or vomiting. He denies fevers, chills, sweats or recent weight change. He denies [place], [place] REPORT OF CONSULTATION NAME: NORMA JAIN UNIT #: [id number] ROOM: [facility] DOCTOR: DARRON ERNST MD BIRTHDATE: [birth year] orthopnea or PND. He has not had hemoptysis or hematemesis. He denies any change in bowel or bladder habits, although he does have difficulty in passing his urine. He denies blood in his stools or urine. He denies any skin rashes. He does have occasional peripheral edema especially on the right. He denies history of blood clots in his legs. Remainder of the review of systems is negative except as noted above. SOCIAL HISTORY: The patient does not smoke or consume alcohol. FAMILY HISTORY: The patient's father of Alzheimer disease. His mother had a 3-vessel bypass, hypertension, coronary artery disease and Alzheimer disease and she is also . PHYSICAL EXAMINATION: GENERAL: The patient is an overweight white male who is awake, alert and oriented. VITAL SIGNS: Pulse is 65 and regular, blood pressure is 146/67. He is afebrile. He weighs 87.7 kg and has a body mass index of 27. HEENT: Normocephalic, atraumatic. Extraocular muscles are intact. Sclerae are clear. Pupils are equal, round and react to light. The oral mucosa is moist. Tongue is midline. NECK: Supple. He has no jugular distention. Carotids are full. I heard no bruits. He had no neck or supraclavicular masses and no thyromegaly. LUNGS: Respirations are unlabored. His chest is clear to auscultation and percussion. He has no presacral edema or chest wall tenderness. CARDIOVASCULAR: His heart has a regular rhythm. He has grade 2/6 systolic murmur along the left sternal border. There are no diastolic murmurs. The PMI is not displaced. He has a fourth heart sound, but no third heart sound. He has no precordial heave, lift or thrill. ABDOMEN: Obese, but otherwise benign, without masses, organomegaly or tenderness. There are no abdominal bruits. EXTREMITIES: Showed no edema. Peripheral pulses are palpable in the feet bilaterally. LABORATORY DATA: The patient's electrocardiogram shows sinus rhythm with atrial sensing and ventricular pacing. The ventricle is 100% paced. Hemoglobin is 9.8, white count 8300, platelet count 287,000. Sodium 139, potassium 4.2, BUN 8, creatinine 0.8, troponin levels are measurable with a peak troponin of 0.024. This is still within normal limits; however, on four occasions. IMPRESSION: 1. Atypical chest pain. This may be musculoskeletal in origin, especially from the patient's recent falls. 2. History of atherosclerotic heart disease, status post bypass surgery. 3. Status post aortic valve replacement utilizing TAVR technique. 4. Sick sinus syndrome, status post pacemaker. 5. Hypertension. 6. Hyperlipidemia. [place], [place] REPORT OF CONSULTATION NAME: NORMA JAIN UNIT #: [id number] ROOM: 507 DOCTOR: DARRON ERNST MD BIRTHDATE: [birth year] 7. Chronic diastolic heart failure. PLAN: The patient's symptoms are not of an established etiology as of yet. Even though trauma may contribute. He is a 17 or 18 years post-bypass surgery and therefore I think that further evaluation with a pharmacologic stress test is appropriate. The patient has agreed to proceed. We will arrange for that within the next 24 hours and further recommendations will depend upon the results of the stress test. We thank the hospitalist physicians for asking our advice regarding his care. DARRON ERNST MD CM:CONSTR:REPORT OF CONSULTATION [id number] 08/01/17 2020 interface
[2017-07-31 18:03] VITALS: BP 156/68
[~2017-07-31 18:03] MED LIST changes: +Bactroban Oint22 GM T; +CALCIUM + D SO1 EACH PO; +SEPTDS PO; +SLOW RELEASE I159 MG PO; +TYLENOL325 M2 PO; +Vitamin D PO
[2017-07-31 19:23] LABS: BASO # 0.1 10*3/uL (0.0-0.1); BASO % 0.5 % (0.0-1.0); EOS % 10.3 % (1.0-4.0); HEMATOCRIT 33.5 % (42.0-52.0); LYMPH # 2.2 10*3/uL (1.3-4.4); LYMPH % 23.4 % (27.0-41.0); MEAN CELL VOLUME 70.5 fl (80.0-94.0); MEAN CORPUSCULAR HGB 21.1 pg (27.0-31.0); MEAN CORPUSCULAR HGB CONC 29.9 g/dl (33.0-37.0); MEAN PLATELET VOLUME 9.2 fl (9.6-12.3); MONO # 0.9 10*3/uL (0.1-1.0); MONO % 9.7 % (3.0-9.0); NEUT # 5.1 10*3/uL (2.3-7.9); NEUT % 55.4 % (47.0-73.0); PLATELET COUNT AUTOMATED 321 10*3/uL (130-400); RED BLOOD COUNT 4.75 10*6/uL (4.50-5.90); RED CELL DISTRI WIDTH 21.9 % (0-14.5); WHITE BLOOD COUNT 9.2 10*3/uL (4.8-10.8)
[2017-07-31 19:38] VITALS: BP 180/75
[2017-07-31 19:39] LABS: INTERNATIONAL NORM RATIO 1.1 (2.0-3.5)
[2017-07-31 19:40] LABS: ALBUMIN 3.8 gm/dl (3.1-4.5); ALKALINE PHOSPHATASE 120 U/L (45-117); BUN 7 mg/dl (7-24); CHLORIDE 103 mmol/L (98-107); CREATININE 0.87 mg/dL (0.70-1.30); LIPASE 62 U/L (73-393); POTASSIUM 4.3 mmol/L (3.5-5.1); SGOT/AST 22 IU/L (3-35); SGPT/ALT 28 U/L (12-78); SODIUM 138 mmol/L (136-145); TOTAL PROTEIN 6.8 gm/dL (6.4-8.2); TROPONIN I 0.019 ng/ml (<0.045)
[2017-07-31 20:13] VITALS: BP 180/75
[2017-07-31 21:07] VITALS: BP 180/89
[2017-07-31 22:15] VITALS: BP 180/90
[2017-08-01] VITALS: BP 180/90
[2017-08-01 00:36] VITALS: BP 148/80
[2017-08-01 04:46] LABS: BASO % 0.5 % (0.0-1.0); EOS # 0.9 10*3/uL (0.0-0.4); EOS % 10.3 % (1.0-4.0); HEMATOCRIT 32.7 % (42.0-52.0); HEMOGLOBIN 9.8 g/dl (14.0-18.0); LYMPH # 1.9 10*3/uL (1.3-4.4); LYMPH % 23.2 % (27.0-41.0); MEAN CELL VOLUME 71.7 fl (80.0-94.0); MEAN CORPUSCULAR HGB 21.5 pg (27.0-31.0); MEAN PLATELET VOLUME 8.7 fl (9.6-12.3); MONO # 0.9 10*3/uL (0.1-1.0); MONO % 10.7 % (3.0-9.0); NEUT # 4.5 10*3/uL (2.3-7.9); NEUT % 54.7 % (47.0-73.0); PLATELET COUNT AUTOMATED 287 10*3/uL (130-400); RED BLOOD COUNT 4.56 10*6/uL (4.50-5.90); RED CELL DISTRI WIDTH 21.8 % (0-14.5); WHITE BLOOD COUNT 8.3 10*3/uL (4.8-10.8)
[2017-08-01 05:01] LABS: ALBUMIN 3.5 gm/dl (3.1-4.5); ALKALINE PHOSPHATASE 109 U/L (45-117); BUN 8 mg/dl (7-24); CHLORIDE 104 mmol/L (98-107); POTASSIUM 4.2 mmol/L (3.5-5.1); SGOT/AST 21 IU/L (3-35); SGPT/ALT 28 U/L (12-78); SODIUM 139 mmol/L (136-145); TOTAL PROTEIN 6.2 gm/dL (6.4-8.2)
[2017-08-01 08:00] VITALS: BP 172/63
[2017-08-01 12:00] VITALS: BP 118/56
[2017-08-01 16:00] VITALS: BP 146/67
[2017-08-01 19:26] LABS: BUN 7 mg/dl (7-24); CHLORIDE 98 mmol/L (98-107); CREATININE 0.85 mg/dL (0.70-1.30); POTASSIUM 3.7 mmol/L (3.5-5.1); SODIUM 134 mmol/L (136-145)
[2017-08-01 19:50] VITALS: BP 165/78
[2017-08-02] VITALS: BP 148/68
[2017-08-02 08:00] VITALS: BP 169/75
[2017-08-02 12:00] VITALS: BP 185/68
[2017-08-02 16:00] VITALS: BP 164/76
[2017-08-02 20:00] VITALS: BP 129/69
[2017-08-03] VITALS: BP 114/56; BP 94/53
[2017-08-03 08:25] VITALS: BP 169/62
[2017-08-03 10:56] LABS: BASO % 0.5 % (0.0-1.0); EOS # 0.7 10*3/uL (0.0-0.4); EOS % 8.8 % (1.0-4.0); HEMATOCRIT 36.3 % (42.0-52.0); HEMOGLOBIN 11.1 g/dl (14.0-18.0); LYMPH # 1.6 10*3/uL (1.3-4.4); LYMPH % 20.5 % (27.0-41.0); MEAN CELL VOLUME 71.2 fl (80.0-94.0); MEAN CORPUSCULAR HGB 21.8 pg (27.0-31.0); MEAN CORPUSCULAR HGB CONC 30.6 g/dl (33.0-37.0); MEAN PLATELET VOLUME 8.9 fl (9.6-12.3); MONO # 0.7 10*3/uL (0.1-1.0); MONO % 8.5 % (3.0-9.0); NEUT # 4.8 10*3/uL (2.3-7.9); NEUT % 61.1 % (47.0-73.0); PLATELET COUNT AUTOMATED 306 10*3/uL (130-400); RED CELL DISTRI WIDTH 22.8 % (0-14.5); WHITE BLOOD COUNT 7.9 10*3/uL (4.8-10.8)
[2017-08-03 11:05] LABS: ACT PARTIAL THROMBO TIME 29.1 SECONDS (20.8-31.5); INTERNATIONAL NORM RATIO 1.1 (2.0-3.5)
[2017-08-03 11:15] LABS: ALBUMIN 3.6 gm/dl (3.1-4.5); ALKALINE PHOSPHATASE 112 U/L (45-117); BUN 11 mg/dl (7-24); CHLORIDE 98 mmol/L (98-107); CREATININE 0.91 mg/dL (0.70-1.30); SGOT/AST 29 IU/L (3-35); SGPT/ALT 14 U/L (12-78); SODIUM 133 mmol/L (136-145); TOTAL PROTEIN 6.9 gm/dL (6.4-8.2)
[2017-08-03 11:17] LABS: TROPONIN I < 0.015 ng/ml (<0.045)
[2017-08-03 12:00] VITALS: BP 102/48
[2017-08-03 16:00] VITALS: BP 113/54
[2017-08-03 17:35] LABS: BILIRUBIN NEGATIVE (NEGATIVE); BLOOD NEGATIVE (NEGATIVE); CLARITY CLEAR (CLEAR); COLOR YELLOW (YELLOW); GLUCOSE NEGATIVE (NEGATIVE); KETONE TRACE (NEGATIVE); LEUKO ESTERASE NEGATIVE (NEGATIVE); NITRITE NEGATIVE (NEGATIVE); PH 5.5 (5.0-9.0); UROBILINOGEN 0.2 E.U./dl (0.2-1.0)
[2017-08-03 17:41] LABS: BACTERIA 1+; HYALINE CAST TNTC; MUCOUS TRACE; RBC 0-2 rbc/hpf (0-2)
[2017-08-03 20:00] VITALS: BP 127/65
[2017-08-04] VITALS: BP 95/50
[2017-08-04 06:11] LABS: ALBUMIN 3.5 gm/dl (3.1-4.5); ALKALINE PHOSPHATASE 101 U/L (45-117); BUN 14 mg/dl (7-24); CHLORIDE 101 mmol/L (98-107); CREATININE 0.75 mg/dL (0.70-1.30); POTASSIUM 3.8 mmol/L (3.5-5.1); SGOT/AST 27 IU/L (3-35); SGPT/ALT 17 U/L (12-78); SODIUM 138 mmol/L (136-145); TOTAL PROTEIN 6.4 gm/dL (6.4-8.2)
[2017-08-04 06:18] LABS: BASO # 0.1 10*3/uL (0.0-0.1); BASO % 0.7 % (0.0-1.0); EOS # 0.8 10*3/uL (0.0-0.4); EOS % 10.4 % (1.0-4.0); HEMATOCRIT 34.7 % (42.0-52.0); HEMOGLOBIN 10.6 g/dl (14.0-18.0); LYMPH # 1.8 10*3/uL (1.3-4.4); MEAN CELL VOLUME 72.1 fl (80.0-94.0); MEAN CORPUSCULAR HGB CONC 30.5 g/dl (33.0-37.0); MEAN PLATELET VOLUME 9.7 fl (9.6-12.3); MONO # 0.9 10*3/uL (0.1-1.0); MONO % 11.4 % (3.0-9.0); PLATELET COUNT AUTOMATED 297 10*3/uL (130-400); RED BLOOD COUNT 4.81 10*6/uL (4.50-5.90); WHITE BLOOD COUNT 7.6 10*3/uL (4.8-10.8)
[2017-08-04 08:00] VITALS: BP 185/71
[2017-08-04 12:12] VITALS: BP 108/60
[2017-08-04] MEDS ORDERED: COREG12.5 M1 PO (12:33)
[2017-08-04] MEDS ORDERED: NAMENDA-5 PO (12:33)
== END 2017-08-04 14:00 | disposition other institution (70) | DRG 313 ==
LOC: ED 18:03 → EDHOLD 21:31 → 5E 21:31
PROVIDERS: Emergency Medicine; Family Medicine Adult Medicine; Internal Medicine; Internal Medicine Cardiovascular Disease; Nurse Practitioner Family
PROC: 4A02XM4 Measurement of Cardiac Total Activity, External Approach (ICD-10-PCS; principal; 2017-08-02)
PROC: 3E073KZ Introduction of Other Diagnostic Substance into Coronary Artery, Percutaneous Approach (ICD-10-PCS; principal; 2017-08-02)
DX: R07.89 Other chest pain (principal); I25.10 Atherosclerotic heart disease of native coronary artery without angina pectoris; E87.2 Acidosis; G20 Parkinson's disease; E87.1 Hypo-osmolality and hyponatremia; I50.32 Chronic diastolic (congestive) heart failure; I11.0 Hypertensive heart disease with heart failure; D72.810 Lymphocytopenia; E78.2 Mixed hyperlipidemia; R41.0 Disorientation, unspecified; F09 Unspecified mental disorder due to known physiological condition; D50.8 Other iron deficiency anemias; K21.9 Gastro-esophageal reflux disease without esophagitis; Z95.0 Presence of cardiac pacemaker; Z95.1 Presence of aortocoronary bypass graft; Z95.2 Presence of prosthetic heart valve; Z85.46 Personal history of malignant neoplasm of prostate; Z86.73 Personal history of transient ischemic attack (TIA), and cerebral infarction without residual deficits; Z88.8 Allergy status to other drugs, medicaments and biological substances; Z82.0 Family history of epilepsy and other diseases of the nervous system; Z82.49 Family history of ischemic heart disease and other diseases of the circulatory system; Z79.899 Other long term (current) drug therapy; Z90.49 Acquired absence of other specified parts of digestive tract; Z79.82 Long term (current) use of aspirin; W18.39XA Other fall on same level, initial encounter; Y93.89 Activity, other specified; Y92.238 Other place in hospital as the place of occurrence of the external cause; Y99.8 Other external cause status

== ENCOUNTER 2017-08-07 08:34 | Emergency (ER) | payer MEDICARE ==
[~2017-08-07] VITALS: Wt 87.5 kg
[~2017-08-07 08:34] MED LIST changes: +NAMENDA-5 PO
[2017-08-07 09:17] LABS: BASO % 0.6 % (0.0-1.0); EOS # 0.6 10*3/uL (0.0-0.4); EOS % 8.5 % (1.0-4.0); HEMATOCRIT 36.9 % (42.0-52.0); HEMOGLOBIN 11.4 g/dl (14.0-18.0); LYMPH # 1.2 10*3/uL (1.3-4.4); MEAN CELL VOLUME 72.8 fl (80.0-94.0); MEAN CORPUSCULAR HGB 22.5 pg (27.0-31.0); MEAN CORPUSCULAR HGB CONC 30.9 g/dl (33.0-37.0); MEAN PLATELET VOLUME 10.5 fl (9.6-12.3); MONO # 0.5 10*3/uL (0.1-1.0); MONO % 7.5 % (3.0-9.0); NEUT # 4.4 10*3/uL (2.3-7.9); NEUT % 64.8 % (47.0-73.0); PLATELET COUNT AUTOMATED 222 10*3/uL (130-400); RED BLOOD COUNT 5.07 10*6/uL (4.50-5.90); RED CELL DISTRI WIDTH 23.7 % (0-14.5); WHITE BLOOD COUNT 6.8 10*3/uL (4.8-10.8)
[2017-08-07 09:32] LABS: ALBUMIN 3.8 gm/dl (3.1-4.5); ALKALINE PHOSPHATASE 103 U/L (45-117); BUN 9 mg/dl (7-24); CHLORIDE 101 mmol/L (98-107); CREATININE 0.82 mg/dL (0.70-1.30); POTASSIUM 3.6 mmol/L (3.5-5.1); SGOT/AST 22 IU/L (3-35); SGPT/ALT 11 U/L (12-78); SODIUM 137 mmol/L (136-145); TOTAL PROTEIN 6.8 gm/dL (6.4-8.2)
[2017-08-07 10:59] VITALS: BP 126/64
== END 2017-08-07 11:57 ==
LOC: ED 08:34
PROVIDERS: Family Medicine
DX: S80.212A Abrasion, left knee, initial encounter (principal); T14.8XXA Other injury of unspecified body region, initial encounter; M25.521 Pain in right elbow; R51 Headache; I25.10 Atherosclerotic heart disease of native coronary artery without angina pectoris; K21.9 Gastro-esophageal reflux disease without esophagitis; E78.5 Hyperlipidemia, unspecified; I11.0 Hypertensive heart disease with heart failure; I50.32 Chronic diastolic (congestive) heart failure; Z88.8 Allergy status to other drugs, medicaments and biological substances; Z79.82 Long term (current) use of aspirin; Z91.81 History of falling; Z79.899 Other long term (current) drug therapy; W01.0XXA Fall on same level from slipping, tripping and stumbling without subsequent striking against object, initial encounter; Y93.89 Activity, other specified; Y92.89 Other specified places as the place of occurrence of the external cause; Y99.8 Other external cause status

== ENCOUNTER 2017-08-09 19:26 | Emergency (ER) | payer MEDICARE ==
[~2017-08-09] VITALS: Ht 177.8 cm; Wt 131.5 kg
[2017-08-09] MEDS ORDERED: MULTIVITAMINS1 EAC5 PO (19:45)
[2017-08-09] MEDS ORDERED: VITAMIN C500 M8 PO (19:45)
[2017-08-09] MEDS ORDERED: NAMENDA-5 PO (19:46)
[2017-08-09] MEDS ORDERED: COREG12.5 M1 PO (19:46)
[2017-08-09] MEDS ORDERED: ZANTAC 150150 MG PO (19:48)
[2017-08-09] MEDS ORDERED: CALCIUM CARB500 MG PO (19:48)
[2017-08-09] MEDS ORDERED: ASPIRIN ADULT L81 M1 PO (19:48)
[2017-08-09] MEDS ORDERED: VESICARE5 MG PO (19:49)
[2017-08-09] MEDS ORDERED: AZILECT1 MG PO (19:49)
[2017-08-09] MEDS ORDERED: PROTONIX40 MG PO (19:49)
[2017-08-09] MEDS ORDERED: CARBIDOPA-LEVO1 EAC7 PO (19:50)
[2017-08-09] MEDS ORDERED: TAMSULOSIN HCL0.4 MG PO (19:50)
[2017-08-09] MEDS ORDERED: MIRAPEX ER1.5 MG PO (19:50)
[2017-08-09] MEDS ORDERED: LIPITOR10 MG PO (19:51)
[2017-08-09] MEDS ORDERED: NORTRIPTYLINE10 MG PO (19:51)
[2017-08-09] MEDS ORDERED: NORVASC5 MG PO (19:51)
[2017-08-09] MEDS ORDERED: MIRALAX17 GM PO (19:54)
[2017-08-09] MEDS ORDERED: TYLENOL325 M2 PO (19:54)
[2017-08-09] MEDS ORDERED: FEROSUL325 MG PO (19:54)
[2017-08-09 21:02] VITALS: BP 163/79
== END 2017-08-09 21:07 | disposition home or self-care (01) ==
LOC: ED 19:26
DX: T14.8XXA Other injury of unspecified body region, initial encounter (principal); M79.602 Pain in left arm; R07.81 Pleurodynia; R07.89 Other chest pain; I10 Essential (primary) hypertension; I25.10 Atherosclerotic heart disease of native coronary artery without angina pectoris; K21.9 Gastro-esophageal reflux disease without esophagitis; E78.5 Hyperlipidemia, unspecified; Z88.8 Allergy status to other drugs, medicaments and biological substances; Z79.82 Long term (current) use of aspirin; Z79.899 Other long term (current) drug therapy; W01.0XXA Fall on same level from slipping, tripping and stumbling without subsequent striking against object, initial encounter; Y93.89 Activity, other specified; Y92.89 Other specified places as the place of occurrence of the external cause; Y99.8 Other external cause status

== ENCOUNTER → 2017-10-16 | Outpatient (CLI) | payer MEDICARE ==
[~2017-10-16] MED LIST changes: +ASPIRIN ADULT L81 M1 PO; +CALCIUM CARB500 MG PO; +CARBIDOPA-LEVO1 EAC7 PO; +FEROSUL325 MG PO; +LIPITOR10 MG PO; +MIRALAX17 GM PO; +MIRAPEX ER1.5 MG PO; +MULTIVITAMINS1 EAC5 PO; +NORVASC5 MG PO; +PROTONIX40 MG PO; +VITAMIN C500 M8 PO
== END | disposition home or self-care (01) ==
LOC: RAD 19:45
DX: J69.0 Pneumonitis due to inhalation of food and vomit (principal); R05 Cough; R09.89 Other specified symptoms and signs involving the circulatory and respiratory systems

== ENCOUNTER 2017-12-08 09:58 | Emergency (ER) | payer MEDICARE ==
[~2017-12-08] VITALS: Ht 180.3 cm; Wt 83.9 kg
[2017-12-08 10:05] VITALS: BP 175/76
== END 2017-12-08 11:44 ==
LOC: ED 09:58
DX: S50.01XA Contusion of right elbow, initial encounter (principal); I25.10 Atherosclerotic heart disease of native coronary artery without angina pectoris; I11.0 Hypertensive heart disease with heart failure; I50.32 Chronic diastolic (congestive) heart failure; K21.9 Gastro-esophageal reflux disease without esophagitis; E78.5 Hyperlipidemia, unspecified; Z88.8 Allergy status to other drugs, medicaments and biological substances; Z79.82 Long term (current) use of aspirin; Z90.49 Acquired absence of other specified parts of digestive tract; Z95.1 Presence of aortocoronary bypass graft; W01.0XXA Fall on same level from slipping, tripping and stumbling without subsequent striking against object, initial encounter; Y93.89 Activity, other specified; Y92.098 Other place in other non-institutional residence as the place of occurrence of the external cause; Y99.8 Other external cause status

== ENCOUNTER 2018-01-14 20:28 | Emergency (ER) | payer MEDICARE ==
[~2018-01-14] VITALS: Ht 180.3 cm; Wt 86.2 kg
[2018-01-14 20:33] VITALS: BP 161/79
[2018-02-09] MEDS ORDERED: NAPROSYN500 MG PO (11:29)
== END 2018-01-14 22:41 | disposition home or self-care (01) ==
LOC: ED 20:28
DX: S70.02XA Contusion of left hip, initial encounter (principal); K59.00 Constipation, unspecified; M54.5 Low back pain; Z88.8 Allergy status to other drugs, medicaments and biological substances; Z79.899 Other long term (current) drug therapy; Z79.82 Long term (current) use of aspirin; W19.XXXA Unspecified fall, initial encounter; Y93.89 Activity, other specified; Y92.89 Other specified places as the place of occurrence of the external cause; Y99.8 Other external cause status

== ENCOUNTER 2018-02-26 23:01 | Emergency (ER) | payer MEDICARE ==
[~2018-02-26] VITALS: Ht 180.3 cm; Wt 78.9 kg
[~2018-02-26 23:01] MED LIST changes: +NAPROSYN500 MG PO
[2018-02-26 23:05] VITALS: BP 152/72
== END 2018-02-27 01:29 | disposition home or self-care (01) ==
LOC: ED 23:01
DX: S01.312A Laceration without foreign body of left ear, initial encounter (principal); S39.012A Strain of muscle, fascia and tendon of lower back, initial encounter; S70.01XA Contusion of right hip, initial encounter; Z98.890 Other specified postprocedural states; Z79.82 Long term (current) use of aspirin; Z79.899 Other long term (current) drug therapy; Z88.8 Allergy status to other drugs, medicaments and biological substances; W18.30XA Fall on same level, unspecified, initial encounter; Y93.89 Activity, other specified; Y92.89 Other specified places as the place of occurrence of the external cause; Y99.8 Other external cause status

== ENCOUNTER → 2018-03-06 | Outpatient (CLI) | payer MEDICARE ==
[~2018-03-06] MED LIST changes: +AMLODIPINE BESY10 MG PO; +BACTRIM 400-801 EACH PO; +CALCI-CHEW500 MG PO; +CLOBETASOL PROP15 GM T; +HUMALOG100 UNIT/1 SQ; +KEFLEX500 M1 PO; +TYLENOL325 M1 PO
[2018-03-06 11:05] LABS: HEMATOCRIT 39.6 % (42.0-52.0); HEMOGLOBIN 13.2 g/dl (14.0-18.0); MEAN CELL VOLUME 88.6 fl (80.0-94.0); MEAN CORPUSCULAR HGB 29.5 pg (27.0-31.0); MEAN CORPUSCULAR HGB CONC 33.3 g/dl (33.0-37.0); MEAN PLATELET VOLUME 9.5 fl (9.6-12.3); RED BLOOD COUNT 4.47 10*6/uL (4.50-5.90); RED CELL DISTRI WIDTH 13.2 % (0-14.5)
[2018-03-06 11:31] LABS: ALBUMIN 3.6 gm/dl (3.1-4.5); ALKALINE PHOSPHATASE 86 U/L (45-117); BUN 9 mg/dl (7-24); CHLORIDE 99 mmol/L (98-107); CHOLESTEROL 152 mg/dL (<200); CREATININE 0.62 mg/dL (0.70-1.30); HDL CHOLESTEROL 44 mg/dl (40-60); LDL CHOLESTEROL 81 mg/dL (9-159); POTASSIUM 4.1 mmol/L (3.5-5.1); SGOT/AST 17 IU/L (3-35); SGPT/ALT 18 U/L (12-78); SODIUM 137 mmol/L (136-145); TOTAL PROTEIN 6.6 gm/dL (6.4-8.2); TRIGLYCERIDES 137 mg/dl (<150); VLDL CHOLESTEROL 27 mg/dL (6-40)
== END | disposition home or self-care (01) ==
LOC: LAB 10:38
PROVIDERS: Physician Assistant
DX: I10 Essential (primary) hypertension (principal); N40.1 Benign prostatic hyperplasia with lower urinary tract symptoms; G20 Parkinson's disease

== ENCOUNTER 2018-03-22 17:28 | Inpatient (IN) | payer MEDICARE ==
[~2018-03-22] VITALS: Ht 177.8 cm; Wt 86.2 kg
--- NOTE | ~2018-03-22 | EKG ---
[place], [place] ELECTROCARDIOGRAM REPORT NAME: NORMA JAIN UNIT #: [id number] ROOM: 406 DOCTOR: PIETER DRAFT REPORT BIRTHDATE: [birth year] [facility] Test Date: 2018-03-22 Test Time: 18:03:11 Pat Name: NORMA JAIN Department: ER Room: 4 Gender: M Mail Sorting Supervisor: Rey Franco : 1940 Requested By: LEONARD SHEPHERD Order Number: [id number] Reading MD: Gi Odell MD Measurements Intervals [place] Rate: 85 P: 7 OR: 218 QRS: -43 QRSD: 146 T: 129 QT: 396 QTc: 471 Interpretive Statements Atrial-sensed ventricular-paced rhythm No further analysis attempted due to paced rhythm Electronically Signed On 03-24-2018 12:24:24 PDT by Gi Odell MD CM:EKGRPT:ELECTROCARDIOGRAM REPORT 1803 1224 LEONARD SHEPHERD MD EPIPHFAWN DRAFT REPORT LEONARD SHEPHERD MD
[~2018-03-22 17:28] MED LIST changes: -AMLODIPINE BESY10 MG PO; -BACTRIM 400-801 EACH PO; -CALCI-CHEW500 MG PO; -CLOBETASOL PROP15 GM T; -HUMALOG100 UNIT/1 SQ; -KEFLEX500 M1 PO; -TYLENOL325 M1 PO
[2018-03-22 17:30] VITALS: BP 177/69
[2018-03-22 17:52] VITALS: BP 177/69
[2018-03-22 18:12] LABS: BASO % 0.5 % (0.0-1.0); EOS # 0.6 10*3/uL (0.0-0.4); EOS % 7.3 % (1.0-4.0); HEMATOCRIT 41.6 % (42.0-52.0); HEMOGLOBIN 14.4 g/dl (14.0-18.0); LYMPH # 1.7 10*3/uL (1.3-4.4); LYMPH % 19.7 % (27.0-41.0); MEAN CELL VOLUME 85.6 fl (80.0-94.0); MEAN CORPUSCULAR HGB 29.6 pg (27.0-31.0); MEAN CORPUSCULAR HGB CONC 34.6 g/dl (33.0-37.0); MEAN PLATELET VOLUME 9.7 fl (9.6-12.3); MONO # 0.9 10*3/uL (0.1-1.0); MONO % 10.2 % (3.0-9.0); NEUT # 5.3 10*3/uL (2.3-7.9); NEUT % 61.6 % (47.0-73.0); PLATELET COUNT AUTOMATED 254 10*3/uL (130-400); RED BLOOD COUNT 4.86 10*6/uL (4.50-5.90); RED CELL DISTRI WIDTH 13.2 % (0-14.5); WHITE BLOOD COUNT 8.7 10*3/uL (4.8-10.8)
[2018-03-22 18:13] LABS: BILIRUBIN NEGATIVE (NEGATIVE); BLOOD NEGATIVE (NEGATIVE); CLARITY CLEAR (CLEAR); COLOR YELLOW (YELLOW); GLUCOSE NEGATIVE (NEGATIVE); KETONE NEGATIVE (NEGATIVE); LEUKO ESTERASE NEGATIVE (NEGATIVE); NITRITE NEGATIVE (NEGATIVE); PH 6.5 (5.0-9.0); UROBILINOGEN 0.2 E.U./dl (0.2-1.0)
[2018-03-22 18:14] LABS: BACTERIA TRACE; RBC 0-2 rbc/hpf (0-2)
[2018-03-22 18:21] LABS: ACT PARTIAL THROMBO TIME 25.5 SECONDS (20.8-31.5)
[2018-03-22 18:22] VITALS: BP 148/68
[2018-03-22 18:30] LABS: ALBUMIN 3.9 gm/dl (3.1-4.5); ALKALINE PHOSPHATASE 102 U/L (45-117); BUN 8 mg/dl (7-24); CHLORIDE 98 mmol/L (98-107); CREATININE 0.63 mg/dL (0.70-1.30); POTASSIUM 3.4 mmol/L (3.5-5.1); SGOT/AST 26 IU/L (3-35); SGPT/ALT 12 U/L (12-78); SODIUM 135 mmol/L (136-145)
[2018-03-22 18:37] LABS: TROPONIN I < 0.015 ng/ml (<0.045)
[2018-03-22 18:41] VITALS: BP 148/68
[2018-03-22 20:00] VITALS: BP 166/76; BP 172/74
[2018-03-22] MEDS ORDERED: CLOBETASOL PROP15 GM T (20:57)
[2018-03-23 00:38] VITALS: BP 160/68
[2018-03-23 07:00] LABS: BASO % 0.5 % (0.0-1.0); EOS # 0.6 10*3/uL (0.0-0.4); EOS % 7.6 % (1.0-4.0); HEMATOCRIT 36.4 % (42.0-52.0); HEMOGLOBIN 12.4 g/dl (14.0-18.0); LYMPH # 1.4 10*3/uL (1.3-4.4); LYMPH % 17.6 % (27.0-41.0); MEAN CELL VOLUME 87.9 fl (80.0-94.0); MEAN CORPUSCULAR HGB CONC 34.1 g/dl (33.0-37.0); MEAN PLATELET VOLUME 9.7 fl (9.6-12.3); MONO # 0.8 10*3/uL (0.1-1.0); MONO % 9.6 % (3.0-9.0); NEUT # 5.2 10*3/uL (2.3-7.9); NEUT % 64.1 % (47.0-73.0); PLATELET COUNT AUTOMATED 206 10*3/uL (130-400); RED BLOOD COUNT 4.14 10*6/uL (4.50-5.90); RED CELL DISTRI WIDTH 13.3 % (0-14.5); WHITE BLOOD COUNT 8.1 10*3/uL (4.8-10.8)
[2018-03-23 07:23] LABS: ALBUMIN 3.1 gm/dl (3.1-4.5); ALKALINE PHOSPHATASE 77 U/L (45-117); BUN 6 mg/dl (7-24); CHLORIDE 106 mmol/L (98-107); CHOLESTEROL 131 mg/dL (<200); CREATININE 0.53 mg/dL (0.70-1.30); FREE T4 0.97 ng/dl (0.76-1.46); HDL CHOLESTEROL 38 mg/dl (40-60); LDL CHOLESTEROL 69 mg/dL (9-159); PHOSPHOROUS 3.8 mg/dL (2.5-4.9); POTASSIUM 3.9 mmol/L (3.5-5.1); SGOT/AST 15 IU/L (3-35); SGPT/ALT 10 U/L (12-78); SODIUM 142 mmol/L (136-145); TOTAL PROTEIN 5.9 gm/dL (6.4-8.2); TRIGLYCERIDES 119 mg/dl (<150); VLDL CHOLESTEROL 24 mg/dL (6-40)
[2018-03-23 07:27] LABS: THYROID STIM HORMONE (HS) 0.774 uIU/ml (0.358-4.75)
[2018-03-23 08:00] VITALS: BP 164/84
[2018-03-23 08:44] LABS: VITAMIN D, 25-HYDROXY 18.2 ng/mL (30-100)
[2018-03-23 12:00] VITALS: BP 126/53
[2018-03-23 16:00] VITALS: BP 135/60
[2018-03-23 20:00] VITALS: BP 141/67
[2018-03-24] VITALS: BP 153/69
[2018-03-24 06:48] LABS: BASO % 0.4 % (0.0-1.0); EOS # 0.6 10*3/uL (0.0-0.4); EOS % 5.4 % (1.0-4.0); HEMOGLOBIN 13.3 g/dl (14.0-18.0); LYMPH # 1.7 10*3/uL (1.3-4.4); LYMPH % 15.4 % (27.0-41.0); MEAN CELL VOLUME 88.3 fl (80.0-94.0); MEAN CORPUSCULAR HGB 29.4 pg (27.0-31.0); MEAN CORPUSCULAR HGB CONC 33.3 g/dl (33.0-37.0); MEAN PLATELET VOLUME 9.9 fl (9.6-12.3); MONO # 0.9 10*3/uL (0.1-1.0); MONO % 8.5 % (3.0-9.0); NEUT # 7.7 10*3/uL (2.3-7.9); NEUT % 69.8 % (47.0-73.0); PLATELET COUNT AUTOMATED 238 10*3/uL (130-400); RED BLOOD COUNT 4.53 10*6/uL (4.50-5.90); RED CELL DISTRI WIDTH 13.3 % (0-14.5); WHITE BLOOD COUNT 11.1 10*3/uL (4.8-10.8)
[2018-03-24 07:28] LABS: BUN 8 mg/dl (7-24); CHLORIDE 101 mmol/L (98-107); POTASSIUM 3.9 mmol/L (3.5-5.1); SODIUM 139 mmol/L (136-145)
[2018-03-24 07:30] LABS: CREATININE 0.57 mg/dL (0.70-1.30)
[2018-03-24 07:47] VITALS: BP 138/70
[2018-03-24 12:00] VITALS: BP 152/58
[2018-03-24 16:00] VITALS: BP 142/86
[2018-03-24 20:00] VITALS: BP 116/64
[2018-03-25 00:13] VITALS: BP 122/68
[2018-03-25 06:00] VITALS: BP 138/78
[2018-03-25 06:07] LABS: BASO % 0.5 % (0.0-1.0); EOS # 0.6 10*3/uL (0.0-0.4); EOS % 6.9 % (1.0-4.0); HEMATOCRIT 36.4 % (42.0-52.0); HEMOGLOBIN 12.4 g/dl (14.0-18.0); LYMPH # 2.2 10*3/uL (1.3-4.4); LYMPH % 24.5 % (27.0-41.0); MEAN CELL VOLUME 87.9 fl (80.0-94.0); MEAN CORPUSCULAR HGB CONC 34.1 g/dl (33.0-37.0); MEAN PLATELET VOLUME 9.8 fl (9.6-12.3); MONO # 0.9 10*3/uL (0.1-1.0); MONO % 9.9 % (3.0-9.0); NEUT # 5.1 10*3/uL (2.3-7.9); NEUT % 57.7 % (47.0-73.0); PLATELET COUNT AUTOMATED 217 10*3/uL (130-400); RED BLOOD COUNT 4.14 10*6/uL (4.50-5.90); RED CELL DISTRI WIDTH 13.3 % (0-14.5); WHITE BLOOD COUNT 8.9 10*3/uL (4.8-10.8)
[2018-03-25 06:18] LABS: BUN 8 mg/dl (7-24); CHLORIDE 102 mmol/L (98-107); CREATININE 0.54 mg/dL (0.70-1.30); POTASSIUM 3.5 mmol/L (3.5-5.1); SODIUM 139 mmol/L (136-145)
[2018-03-25 08:00] VITALS: BP 177/80
[2018-03-25 12:00] VITALS: BP 152/57
[2018-03-25 16:00] VITALS: BP 122/58
[2018-03-25 20:00] VITALS: BP 139/61
[2018-03-26] VITALS: BP 152/63
[2018-03-26 07:02] LABS: BASO % 0.3 % (0.0-1.0); EOS # 0.7 10*3/uL (0.0-0.4); EOS % 7.4 % (1.0-4.0); HEMATOCRIT 38.5 % (42.0-52.0); HEMOGLOBIN 12.9 g/dl (14.0-18.0); LYMPH # 1.9 10*3/uL (1.3-4.4); LYMPH % 21.4 % (27.0-41.0); MEAN CELL VOLUME 87.1 fl (80.0-94.0); MEAN CORPUSCULAR HGB 29.2 pg (27.0-31.0); MEAN CORPUSCULAR HGB CONC 33.5 g/dl (33.0-37.0); MEAN PLATELET VOLUME 9.7 fl (9.6-12.3); MONO # 0.9 10*3/uL (0.1-1.0); MONO % 10.3 % (3.0-9.0); NEUT # 5.2 10*3/uL (2.3-7.9); NEUT % 60.1 % (47.0-73.0); PLATELET COUNT AUTOMATED 223 10*3/uL (130-400); RED BLOOD COUNT 4.42 10*6/uL (4.50-5.90); RED CELL DISTRI WIDTH 13.2 % (0-14.5); WHITE BLOOD COUNT 8.7 10*3/uL (4.8-10.8)
[2018-03-26 07:30] LABS: BUN 9 mg/dl (7-24); CHLORIDE 102 mmol/L (98-107); POTASSIUM 3.6 mmol/L (3.5-5.1); SODIUM 140 mmol/L (136-145)
[2018-03-26 07:33] LABS: CREATININE 0.54 mg/dL (0.70-1.30)
[2018-03-26 08:00] VITALS: BP 161/82
== END 2018-03-26 13:44 | disposition other institution (70) | DRG 292 ==
LOC: ED 17:28 → EDHOLD 17:50 → 4E 17:50
PROVIDERS: Emergency Medicine; Internal Medicine; Student in an Organized Health Care Education/Training Program
DX: I11.0 Hypertensive heart disease with heart failure (principal); E87.1 Hypo-osmolality and hyponatremia; S80.01XA Contusion of right knee, initial encounter; I50.32 Chronic diastolic (congestive) heart failure; S39.012A Strain of muscle, fascia and tendon of lower back, initial encounter; Y99.8 Other external cause status; R42 Dizziness and giddiness; E87.6 Hypokalemia; R73.9 Hyperglycemia, unspecified; K21.9 Gastro-esophageal reflux disease without esophagitis; G20 Parkinson's disease; I25.10 Atherosclerotic heart disease of native coronary artery without angina pectoris; E55.9 Vitamin D deficiency, unspecified; R29.6 Repeated falls; W18.39XA Other fall on same level, initial encounter; F03.90 Unspecified dementia, unspecified severity, without behavioral disturbance, psychotic disturbance, mood disturbance, and anxiety; Z88.8 Allergy status to other drugs, medicaments and biological substances; Z79.899 Other long term (current) drug therapy; Z79.82 Long term (current) use of aspirin; Z95.3 Presence of xenogenic heart valve; Z95.1 Presence of aortocoronary bypass graft; Z90.49 Acquired absence of other specified parts of digestive tract; Z95.0 Presence of cardiac pacemaker; Z82.49 Family history of ischemic heart disease and other diseases of the circulatory system; Z83.79 Family history of other diseases of the digestive system; Z82.0 Family history of epilepsy and other diseases of the nervous system; Z85.46 Personal history of malignant neoplasm of prostate; Y93.89 Activity, other specified; Y92.89 Other specified places as the place of occurrence of the external cause

== ENCOUNTER 2018-04-11 16:06 | Inpatient (IN) | payer MEDICARE ==
[~2018-04-11] VITALS: Ht 180.3 cm; Wt 84.4 kg
[2018-04-11] VITALS (10 sets, daily range): BP systolic 144–202; BP diastolic 60–82
--- NOTE | ~2018-04-11 | EKG ---
[place], [place] ELECTROCARDIOGRAM REPORT NAME: NORMA JAIN UNIT #: [id number] ROOM: 509 DOCTOR: PIETER DRAFT REPORT BIRTHDATE: [birth year] [facility] Test Date: 2018-04-11 Test Time: 17:06:28 Pat Name: NORMA JAIN Department: Room: 509 Gender: M Mold Laminator: MARTIN : 1940 Requested By: DAVID ARNETT Order Number: [id number] Reading MD: Gi Odell MD Measurements Intervals [place] Rate: 64 P: -26 [place]: 218 QRS: -41 QRSD: 140 T: 107 QT: 446 QTc: 461 Interpretive Statements Atrial-sensed ventricular-paced complexes No further analysis attempted due to paced rhythm Compared to ECG 03/22/2018 18:03:11 No significant changes Electronically Signed On 04-15-2018 13:54:42 PDT by Gi Odell MD CM:EKGRPT:ELECTROCARDIOGRAM REPORT [id number] DAVID BARR DRAFT REPORT DAVID ARNETT DO
[~2018-04-11 16:06] MED LIST changes: +CLOBETASOL PROP15 GM T
[2018-04-11 16:45] LABS: BASO % 0.5 % (0.0-1.0); EOS # 0.6 10*3/uL (0.0-0.4); EOS % 7.3 % (1.0-4.0); HEMATOCRIT 41.5 % (42.0-52.0); HEMOGLOBIN 13.7 g/dl (14.0-18.0); LYMPH # 2.3 10*3/uL (1.3-4.4); LYMPH % 27.2 % (27.0-41.0); MEAN CELL VOLUME 87.6 fl (80.0-94.0); MEAN CORPUSCULAR HGB 28.9 pg (27.0-31.0); MEAN PLATELET VOLUME 9.3 fl (9.6-12.3); MONO # 0.8 10*3/uL (0.1-1.0); MONO % 9.6 % (3.0-9.0); NEUT # 4.6 10*3/uL (2.3-7.9); NEUT % 54.7 % (47.0-73.0); PLATELET COUNT AUTOMATED 245 10*3/uL (130-400); RED BLOOD COUNT 4.74 10*6/uL (4.50-5.90); RED CELL DISTRI WIDTH 13.3 % (0-14.5); WHITE BLOOD COUNT 8.4 10*3/uL (4.8-10.8)
[2018-04-11 16:54] LABS: ACT PARTIAL THROMBO TIME 25.9 SECONDS (20.8-31.5)
[2018-04-11 17:00] LABS: ALBUMIN 3.9 gm/dl (3.1-4.5); ALKALINE PHOSPHATASE 80 U/L (45-117); BUN 11 mg/dl (7-24); CHLORIDE 102 mmol/L (98-107); CREATININE 0.67 mg/dL (0.70-1.30); LIPASE 135 U/L (73-393); POTASSIUM 3.7 mmol/L (3.5-5.1); SGOT/AST 28 IU/L (3-35); SGPT/ALT 22 U/L (12-78); SODIUM 138 mmol/L (136-145); TOTAL PROTEIN 6.8 gm/dL (6.4-8.2)
[2018-04-12] VITALS: BP 122/59
[2018-04-12 04:04] LABS: BASO # 0.1 10*3/uL (0.0-0.1); BASO % 0.6 % (0.0-1.0); EOS # 0.5 10*3/uL (0.0-0.4); EOS % 6.4 % (1.0-4.0); HEMATOCRIT 43.3 % (42.0-52.0); HEMOGLOBIN 14.5 g/dl (14.0-18.0); LYMPH # 1.9 10*3/uL (1.3-4.4); LYMPH % 22.8 % (27.0-41.0); MEAN CELL VOLUME 87.1 fl (80.0-94.0); MEAN CORPUSCULAR HGB 29.2 pg (27.0-31.0); MEAN CORPUSCULAR HGB CONC 33.5 g/dl (33.0-37.0); MEAN PLATELET VOLUME 9.8 fl (9.6-12.3); MONO # 0.9 10*3/uL (0.1-1.0); MONO % 10.9 % (3.0-9.0); NEUT % 58.9 % (47.0-73.0); PLATELET COUNT AUTOMATED 249 10*3/uL (130-400); RED BLOOD COUNT 4.97 10*6/uL (4.50-5.90); RED CELL DISTRI WIDTH 13.4 % (0-14.5); WHITE BLOOD COUNT 8.5 10*3/uL (4.8-10.8)
[2018-04-12 04:21] LABS: ALBUMIN 3.7 gm/dl (3.1-4.5); ALKALINE PHOSPHATASE 77 U/L (45-117); BUN 11 mg/dl (7-24); CHLORIDE 106 mmol/L (98-107); CHOLESTEROL 133 mg/dL (<200); CREATININE 0.63 mg/dL (0.70-1.30); HDL CHOLESTEROL 46 mg/dl (40-60); LDL CHOLESTEROL 63 mg/dL (9-159); POTASSIUM 3.6 mmol/L (3.5-5.1); SGOT/AST 23 IU/L (3-35); SGPT/ALT 16 U/L (12-78); SODIUM 142 mmol/L (136-145); TRIGLYCERIDES 122 mg/dl (<150); VLDL CHOLESTEROL 24 mg/dL (6-40)
[2018-04-12 04:25] LABS: TOTAL PROTEIN 6.7 gm/dL (6.4-8.2)
[2018-04-12 07:26] LABS: VITAMIN D, 25-HYDROXY 22.9 ng/mL (30-100)
[2018-04-12 08:00] VITALS: BP 178/84
[2018-04-12] MEDS ORDERED: ZANTAC 150150 MG PO (08:25)
[2018-04-12] MEDS ORDERED: VITAMIN C500 M8 PO (08:26)
[2018-04-12] MEDS ORDERED: TYLENOL325 M1 PO (08:27)
[2018-04-12] MEDS ORDERED: NORVASC10 MG PO (08:29)
[2018-04-12] MEDS ORDERED: CALCI-CHEW500 MG PO (08:29)
[2018-04-12] MEDS ORDERED: MIRALAX POWDER255 G1 PO (08:30)
[2018-04-12] MEDS ORDERED: MIRAPEX1.5 MG PO (08:30)
[2018-04-12] MEDS ORDERED: LIPITOR10 MG PO (08:31)
[2018-04-12] MEDS ORDERED: HUMALOG100 UNIT/1 SQ (08:35)
[2018-04-12 12:00] VITALS: BP 105/56; BP 109/77; BP 158/78
[2018-04-12 16:00] VITALS: BP 157/77
[2018-04-12 20:00] VITALS: BP 124/58
[2018-04-13] VITALS: BP 106/55
[2018-04-13 06:37] LABS: BASO % 0.2 % (0.0-1.0); EOS # 0.5 10*3/uL (0.0-0.4); EOS % 5.4 % (1.0-4.0); HEMOGLOBIN 13.6 g/dl (14.0-18.0); LYMPH # 1.7 10*3/uL (1.3-4.4); LYMPH % 18.8 % (27.0-41.0); MEAN CELL VOLUME 87.6 fl (80.0-94.0); MEAN CORPUSCULAR HGB 29.1 pg (27.0-31.0); MEAN CORPUSCULAR HGB CONC 33.2 g/dl (33.0-37.0); MEAN PLATELET VOLUME 9.3 fl (9.6-12.3); MONO # 0.9 10*3/uL (0.1-1.0); MONO % 10.4 % (3.0-9.0); NEUT # 5.8 10*3/uL (2.3-7.9); NEUT % 64.9 % (47.0-73.0); PLATELET COUNT AUTOMATED 211 10*3/uL (130-400); RED BLOOD COUNT 4.68 10*6/uL (4.50-5.90); RED CELL DISTRI WIDTH 13.4 % (0-14.5); WHITE BLOOD COUNT 8.9 10*3/uL (4.8-10.8)
[2018-04-13 06:53] LABS: ALBUMIN 3.5 gm/dl (3.1-4.5); ALKALINE PHOSPHATASE 74 U/L (45-117); BUN 12 mg/dl (7-24); CHLORIDE 102 mmol/L (98-107); CREATININE 0.69 mg/dL (0.70-1.30); POTASSIUM 3.9 mmol/L (3.5-5.1); SGOT/AST 20 IU/L (3-35); SGPT/ALT 18 U/L (12-78); SODIUM 138 mmol/L (136-145); TOTAL PROTEIN 6.2 gm/dL (6.4-8.2)
[2018-04-13] MEDS ORDERED: AMLODIPINE BESY10 MG PO (10:35)
[2018-04-13] MEDS ORDERED: COREG12.5 M1 PO (10:35)
[2018-04-13 12:00] VITALS: BP 100/54
== END 2018-04-13 13:16 | disposition other institution (70) | DRG 305 ==
LOC: ED 16:06 → EDHOLD 18:22 → 5E 18:22
PROVIDERS: Emergency Medicine; Internal Medicine
DX: I16.1 Hypertensive emergency (principal); I50.32 Chronic diastolic (congestive) heart failure; I25.10 Atherosclerotic heart disease of native coronary artery without angina pectoris; R29.6 Repeated falls; K21.9 Gastro-esophageal reflux disease without esophagitis; I11.0 Hypertensive heart disease with heart failure; E78.5 Hyperlipidemia, unspecified; D50.9 Iron deficiency anemia, unspecified; K59.00 Constipation, unspecified; G20 Parkinson's disease; Z85.46 Personal history of malignant neoplasm of prostate; Z90.49 Acquired absence of other specified parts of digestive tract; Z95.0 Presence of cardiac pacemaker; Z82.0 Family history of epilepsy and other diseases of the nervous system; Z82.49 Family history of ischemic heart disease and other diseases of the circulatory system; Z88.8 Allergy status to other drugs, medicaments and biological substances; Z79.1 Long term (current) use of non-steroidal anti-inflammatories (NSAID); Z79.82 Long term (current) use of aspirin; Z79.4 Long term (current) use of insulin; Z79.899 Other long term (current) drug therapy

== ENCOUNTER 2018-05-04 14:47 | Emergency (ER) | payer MEDICARE ==
[~2018-05-04] VITALS: Ht 180.3 cm; Wt 86.2 kg
[~2018-05-04 14:47] MED LIST changes: +AMLODIPINE BESY10 MG PO; +CALCI-CHEW500 MG PO; +HUMALOG100 UNIT/1 SQ; +TYLENOL325 M1 PO
[2018-05-04 14:49] VITALS: BP 118/73
[2018-05-04] MEDS ORDERED: KEFLEX500 M1 PO (14:54)
== END 2018-05-04 15:22 | disposition home or self-care (01) ==
LOC: ED 14:47
DX: S81.012A Laceration without foreign body, left knee, initial encounter (principal); I25.10 Atherosclerotic heart disease of native coronary artery without angina pectoris; K21.9 Gastro-esophageal reflux disease without esophagitis; E78.5 Hyperlipidemia, unspecified; I11.0 Hypertensive heart disease with heart failure; I50.9 Heart failure, unspecified; Z95.0 Presence of cardiac pacemaker; Z79.899 Other long term (current) drug therapy; Z79.82 Long term (current) use of aspirin; Z88.8 Allergy status to other drugs, medicaments and biological substances; W19.XXXA Unspecified fall, initial encounter; Y93.89 Activity, other specified; Y92.89 Other specified places as the place of occurrence of the external cause; Y99.8 Other external cause status

== ENCOUNTER 2018-05-30 22:20 | Inpatient (IN) | payer MEDICARE ==
[~2018-05-30] VITALS: Ht 180.3 cm; Wt 84.2 kg
[~2018-05-30 22:20] MED LIST changes: +KEFLEX500 M1 PO
[2018-05-30 22:24] VITALS: BP 186/79
[2018-05-30 23:02] LABS: BILIRUBIN NEGATIVE (NEGATIVE); BLOOD 3+ (NEGATIVE); CLARITY CLOUDY (CLEAR); COLOR RED (YELLOW); GLUCOSE NEGATIVE (NEGATIVE); KETONE TRACE (NEGATIVE); LEUKO ESTERASE 2+ (NEGATIVE); NITRITE POSITIVE (NEGATIVE); PH 5.5 (5.0-9.0); SPECIFIC GRAVITY 1.025 (1.005-1.030)
[2018-05-30 23:10] LABS: BASO # 0.1 10*3/uL (0.0-0.1); BASO % 0.4 % (0.0-1.0); EOS # 0.6 10*3/uL (0.0-0.4); EOS % 4.4 % (1.0-4.0); HEMATOCRIT 42.5 % (42.0-52.0); HEMOGLOBIN 14.1 g/dl (14.0-18.0); LYMPH # 1.8 10*3/uL (1.3-4.4); LYMPH % 12.4 % (27.0-41.0); MEAN CELL VOLUME 87.3 fl (80.0-94.0); MEAN CORPUSCULAR HGB CONC 33.2 g/dl (33.0-37.0); MEAN PLATELET VOLUME 9.4 fl (9.6-12.3); MONO # 1.4 10*3/uL (0.1-1.0); MONO % 9.9 % (3.0-9.0); NEUT # 10.3 10*3/uL (2.3-7.9); NEUT % 72.3 % (47.0-73.0); PLATELET COUNT AUTOMATED 217 10*3/uL (130-400); RED BLOOD COUNT 4.87 10*6/uL (4.50-5.90); RED CELL DISTRI WIDTH 13.5 % (0-14.5); WHITE BLOOD COUNT 14.2 10*3/uL (4.8-10.8)
[2018-05-30 23:14] LABS: RBC TNTC rbc/hpf (0-2)
[2018-05-30 23:26] LABS: ALBUMIN 3.7 gm/dl (3.1-4.5); ALKALINE PHOSPHATASE 86 U/L (45-117); BUN 11 mg/dl (7-24); CHLORIDE 105 mmol/L (98-107); CREATININE 0.73 mg/dL (0.70-1.30); POTASSIUM 3.9 mmol/L (3.5-5.1); SGOT/AST 47 IU/L (3-35); SGPT/ALT 59 U/L (12-78); SODIUM 142 mmol/L (136-145); TOTAL PROTEIN 6.9 gm/dL (6.4-8.2)
[2018-05-31] VITALS (8 sets, daily range): BP systolic 142–180; BP diastolic 64–98
[2018-05-31] MEDS ORDERED: CLARITIN10 MG PO (02:31)
[2018-05-31 03:50] LABS: BASO # 0.1 10*3/uL (0.0-0.1); BASO % 0.4 % (0.0-1.0); EOS # 0.4 10*3/uL (0.0-0.4); EOS % 3.6 % (1.0-4.0); HEMATOCRIT 39.1 % (42.0-52.0); HEMOGLOBIN 13.3 g/dl (14.0-18.0); LYMPH # 1.9 10*3/uL (1.3-4.4); LYMPH % 16.6 % (27.0-41.0); MEAN CELL VOLUME 86.7 fl (80.0-94.0); MEAN CORPUSCULAR HGB 29.5 pg (27.0-31.0); MEAN PLATELET VOLUME 9.4 fl (9.6-12.3); MONO # 1.1 10*3/uL (0.1-1.0); MONO % 9.5 % (3.0-9.0); NEUT % 69.5 % (47.0-73.0); PLATELET COUNT AUTOMATED 202 10*3/uL (130-400); RED BLOOD COUNT 4.51 10*6/uL (4.50-5.90); RED CELL DISTRI WIDTH 13.5 % (0-14.5); WHITE BLOOD COUNT 11.5 10*3/uL (4.8-10.8)
[2018-05-31 04:09] LABS: ALBUMIN 3.3 gm/dl (3.1-4.5); ALKALINE PHOSPHATASE 76 U/L (45-117); BUN 9 mg/dl (7-24); CHLORIDE 108 mmol/L (98-107); CREATININE 0.59 mg/dL (0.70-1.30); PHOSPHOROUS 3.2 mg/dL (2.5-4.9); POTASSIUM 3.9 mmol/L (3.5-5.1); SGOT/AST 39 IU/L (3-35); SGPT/ALT 57 U/L (12-78); SODIUM 145 mmol/L (136-145); TOTAL PROTEIN 6.2 gm/dL (6.4-8.2)
[2018-06-01] VITALS: BP 125/59
[2018-06-01 06:16] LABS: BASO % 0.4 % (0.0-1.0); EOS # 0.5 10*3/uL (0.0-0.4); EOS % 5.8 % (1.0-4.0); HEMATOCRIT 37.8 % (42.0-52.0); HEMOGLOBIN 12.6 g/dl (14.0-18.0); LYMPH # 1.7 10*3/uL (1.3-4.4); MEAN CELL VOLUME 87.7 fl (80.0-94.0); MEAN CORPUSCULAR HGB 29.2 pg (27.0-31.0); MEAN CORPUSCULAR HGB CONC 33.3 g/dl (33.0-37.0); MEAN PLATELET VOLUME 9.7 fl (9.6-12.3); MONO # 0.8 10*3/uL (0.1-1.0); MONO % 9.8 % (3.0-9.0); NEUT # 5.4 10*3/uL (2.3-7.9); NEUT % 63.4 % (47.0-73.0); PLATELET COUNT AUTOMATED 187 10*3/uL (130-400); RED BLOOD COUNT 4.31 10*6/uL (4.50-5.90); RED CELL DISTRI WIDTH 13.4 % (0-14.5); WHITE BLOOD COUNT 8.6 10*3/uL (4.8-10.8)
[2018-06-01 06:54] LABS: BUN 7 mg/dl (7-24); CHLORIDE 103 mmol/L (98-107); CREATININE 0.58 mg/dL (0.70-1.30); PHOSPHOROUS 3.4 mg/dL (2.5-4.9); POTASSIUM 3.7 mmol/L (3.5-5.1); SODIUM 138 mmol/L (136-145)
[2018-06-01 08:00] VITALS: BP 165/68
[2018-06-01] MEDS ORDERED: AMLODIPINE BESYL5 MG PO (10:16)
[2018-06-01] MEDS ORDERED: BACTRIM 400-801 EACH PO (11:03)
[2018-06-01 12:00] VITALS: BP 134/53
== END 2018-06-01 14:48 | disposition other institution (70) | DRG 872 ==
LOC: ED 22:20 → EDHOLD 05-31 00:10 → 5E 05-31 00:10
PROVIDERS: Emergency Medicine Emergency Medical Services; Family Medicine; Internal Medicine
DX: A41.9 Sepsis, unspecified organism (principal); I50.32 Chronic diastolic (congestive) heart failure; N30.01 Acute cystitis with hematuria; I25.10 Atherosclerotic heart disease of native coronary artery without angina pectoris; K21.9 Gastro-esophageal reflux disease without esophagitis; E86.0 Dehydration; K57.90 Diverticulosis of intestine, part unspecified, without perforation or abscess without bleeding; R29.6 Repeated falls; E78.5 Hyperlipidemia, unspecified; N40.0 Benign prostatic hyperplasia without lower urinary tract symptoms; I11.0 Hypertensive heart disease with heart failure; G20 Parkinson's disease; I16.0 Hypertensive urgency; N20.0 Calculus of kidney; Z88.8 Allergy status to other drugs, medicaments and biological substances; Z79.899 Other long term (current) drug therapy; Z79.82 Long term (current) use of aspirin; Z95.0 Presence of cardiac pacemaker; Z85.46 Personal history of malignant neoplasm of prostate; Z90.49 Acquired absence of other specified parts of digestive tract; Z95.3 Presence of xenogenic heart valve; Z82.49 Family history of ischemic heart disease and other diseases of the circulatory system; Z83.79 Family history of other diseases of the digestive system

== ENCOUNTER 2018-06-12 22:13 | Emergency (ER) | payer MEDICARE ==
[~2018-06-12] VITALS: Ht 182.8 cm; Wt 90.7 kg
[~2018-06-12 22:13] MED LIST changes: +BACTRIM 400-801 EACH PO
[2018-06-13 00:40] VITALS: BP 142/52
== END 2018-06-13 00:25 | disposition other institution (70) ==
LOC: ED 22:13
DX: S00.03XA Contusion of scalp, initial encounter (principal); I25.10 Atherosclerotic heart disease of native coronary artery without angina pectoris; K21.9 Gastro-esophageal reflux disease without esophagitis; E78.5 Hyperlipidemia, unspecified; I11.0 Hypertensive heart disease with heart failure; I50.32 Chronic diastolic (congestive) heart failure; E11.9 Type 2 diabetes mellitus without complications; Z88.8 Allergy status to other drugs, medicaments and biological substances; Z79.2 Long term (current) use of antibiotics; Z79.899 Other long term (current) drug therapy; Z79.82 Long term (current) use of aspirin; Z90.49 Acquired absence of other specified parts of digestive tract; Z95.1 Presence of aortocoronary bypass graft; W19.XXXA Unspecified fall, initial encounter; Y93.89 Activity, other specified; Y92.89 Other specified places as the place of occurrence of the external cause; Y99.8 Other external cause status

== ENCOUNTER 2018-06-17 20:26 | Inpatient (IN) | payer MEDICARE ==
[~2018-06-17] VITALS: Ht 182.8 cm; Wt 86.4 kg
--- NOTE | ~2018-06-17 | EKG ---
[place], [place] ELECTROCARDIOGRAM REPORT NAME: NORMA JAIN UNIT #: [id number] ROOM: 520 DOCTOR: PIETER DRAFT REPORT BIRTHDATE: [birth year] [facility] Test Date: 2018-06-18 Test Time: 02:57:35 Pat Name: NORMA JAIN Department: Room: 520 Gender: M Seismograph Supervisor: Daniela Mendieta : 1940 Requested By: WALTER GALLO Order Number: [id number] Reading MD: Leila Vail MD Measurements Intervals [place] Rate: 63 P: -25 [place]: 178 QRS: -35 QRSD: 122 T: 97 QT: 428 QTc: 439 Interpretive Statements Atrial-sensed ventricular-paced rhythm No further analysis attempted due to paced rhythm Baseline wander in lead(s) II,III,aVF,V5 Compared to ECG 04/11/2018 17:06:28 No significant changes Electronically Signed On 06-21-2018 10:44:40 PST by Leila Vail MD CM:EKGRPT:ELECTROCARDIOGRAM REPORT [id number] 1044 WALTER BARR DRAFT REPORT WALTER GALLO DO
--- NOTE | ~2018-06-17 | CON ---
[place], [place] REPORT OF CONSULTATION NAME: NORMA JAIN UNIT #: [id number] ROOM: 520 DOCTOR: LONI MUNOZ MD BIRTHDATE: [birth year] DOS: 06/20/2018 REASON FOR CONSULTATION: ESBL UTI. REASON FOR ADMISSION: Dysuria, fever, as well as encephalopathy. HISTORY OF PRESENT ILLNESS: This is a 78-year-old male with history of prostate cancer, status post radiation therapy almost 3 years ago, currently followed outpatient with Urology who is presenting from a [facility] with fever, dysuria, and encephalopathy. According to the family who was at bedside, he was recently admitted 2 weeks ago for complaints of dysuria and hematuria. He initially got antibiotics inpatient and 2 days later most of his symptoms resolved. His urine culture last admission has no bacterial growth, and he was discharged on Bactrim for 14 days. He got readmitted with the symptoms mentioned above and this time, his UA does show pyuria. Urine cultures shows growth of ESBL E. coli, which is resistant to Bactrim. A CT abdomen and pelvis was recently done on 05/30/2018 that shows bladder wall thickening with adjacent stranding, nonobstructing stone in the right kidney without hydronephrosis, currently his vitals are stable. Labs reveal new leukocytosis; initially he did come with a WBC count of 16.8. Multiple blood cultures done, negative. Chest x-ray was done initially on admission that was concerning for left lower lobe pneumonia, although he denies having chest pain or shortness of breath. No sore throat. Occasional dry cough. He has been getting vancomycin, Zosyn, and Levaquin to treat his pneumonia as well and ID has been consulted for further management. PAST MEDICAL HISTORY: Significant for bilateral inguinal hernia, benign prostatic hypertrophy, history of prostate cancer, diverticulosis, GERD, diabetes, hyperlipidemia, hypertension, nephrolithiasis, pacemaker placement, and bioprosthetic heart valve. PAST SURGICAL HISTORY: History of cholecystectomy, history of esophageal dilation, appendectomy, quadruple bypass. PAST SOCIAL HISTORY: Nonalcoholic, nonsmoker. No illicit drug use. FAMILY HISTORY: Noncontributory. ALLERGIES: TO MEMANTINE AND QUINAPRIL. HOME MEDICATIONS: Reviewed. REVIEW OF SYSTEMS: A 12-point review of systems has been done. Pertinent negatives and positives included in HPI, rest are noncontributory. PHYSICAL EXAMINATION: VITAL SIGNS: Vitals stable noted. GENERAL: The patient is alert, oriented, not in acute distress. HEENT: Atraumatic, normocephalic. PERRLA, EOMI. There is a small wound at the center of his scalp, which is not infected. [place], [place] REPORT OF CONSULTATION NAME: NORMA JAIN UNIT #: [id number] ROOM: [facility] DOCTOR: LONI MUNOZ MD BIRTHDATE: [birth year] NECK: Supple. Trachea midline. RESPIRATORY: Air entry bilaterally equal. No wheeze or crackles. CARDIOVASCULAR: S1, S2 normal. Grade 2/6 loud systolic murmur, mechanical. ABDOMEN: Soft, nontender, nondistended. Bowel sounds present EXTREMITIES: Bilateral lower extremities, no pedal edema. GENITOURINARY: Casper catheter in place. LABORATORY DATA AND IMAGING: Reviewed, mentioned in HPI. ASSESSMENT: Complicated urinary tract infection in a male with ESBL escherichia coli. PLAN: 1. At this time discontinue vancomycin and Levaquin. 2. Continue with Zosyn for now, he is resistant to most of the oral options at this time, would recommend getting a midline and ertapenem 1 g daily at the time of discharge to cover 14 days of total therapy, end date of antibiotics 06/30/2018. Discussed with family about the details. 3. Currently not concerning for pneumonia, can repeat chest x-ray in 2-3 days to see if it was a temporary infiltrate from fluid overload. Thank you for your consult. Please call if any questions. Loni Munoz MD CM:CONSTR:REPORT OF CONSULTATION 1746 06/21/18 4232 interface
--- NOTE | ~2018-06-17 | EKG ---
[place], [place] ELECTROCARDIOGRAM REPORT NAME: NORMA JAIN UNIT #: [id number] ROOM: 520 DOCTOR: PIETER DRAFT REPORT BIRTHDATE: [birth year] [facility] Test Date: 2018-06-18 Test Time: 00:08:47 Pat Name: NORMA JAIN Department: Room: 520 Gender: M Certified Medical Biller: Daniela Mendieta : 1940 Requested By: WALTER GALLO Order Number: [id number] Reading MD: Leila Vail MD Measurements Intervals [place] Rate: 71 P: -15 [place]: 226 QRS: -42 QRSD: 121 T: 114 QT: 404 QTc: 439 Interpretive Statements Atrial-sensed ventricular-paced rhythm No further analysis attempted due to paced rhythm Compared to ECG 04/11/2018 17:06:28 No significant changes Electronically Signed On 06-21-2018 10:44:26 PST by Leila Vail MD CM:EKGRPT:ELECTROCARDIOGRAM REPORT [id number] 1044 WALTER BARR DRAFT REPORT WALTER GALLO DO
--- NOTE | ~2018-06-17 | EKG ---
[place], [place] ELECTROCARDIOGRAM REPORT NAME: NORMA JAIN UNIT #: [id number] ROOM: 520 DOCTOR: PIETER DRAFT REPORT BIRTHDATE: [birth year] [facility] Test Date: 2018-06-17 Test Time: 20:48:20 Pat Name: NORMA JAIN Department: ER Room: 520 Gender: M Ambulatory Care Coordinator: Yahir Romano : 1940 Requested By: NENITA TY Order Number: [id number] Reading MD: Leila Vail MD Measurements Intervals [place] Rate: 82 P: -25 [place]: 218 QRS: -50 QRSD: 139 T: 107 QT: 394 QTc: 461 Interpretive Statements Atrial-sensed ventricular-paced rhythm No further analysis attempted due to paced rhythm Compared to ECG 04/11/2018 17:06:28 No significant changes Electronically Signed On 06-21-2018 10:44:23 PST by Leila Vail MD CM:EKGRPT:ELECTROCARDIOGRAM REPORT [id number] 1044 NENITA BARR DRAFT REPORT NENITA TY DO
[2018-06-17 20:31] VITALS: BP 174/69
[2018-06-17 20:56] VITALS: BP 152/70
[2018-06-17 21:24] LABS: HEMATOCRIT 38.2 % (42.0-52.0); HEMOGLOBIN 13.1 g/dl (14.0-18.0); MEAN CORPUSCULAR HGB 29.5 pg (27.0-31.0); MEAN CORPUSCULAR HGB CONC 34.3 g/dl (33.0-37.0); MEAN PLATELET VOLUME 9.6 fl (9.6-12.3); PLATELET COUNT AUTOMATED 195 10*3/uL (130-400); RED BLOOD COUNT 4.44 10*6/uL (4.50-5.90); RED CELL DISTRI WIDTH 13.8 % (0-14.5); WHITE BLOOD COUNT 16.8 10*3/uL (4.8-10.8)
--- NOTE | 2018-06-17 21:31 | NUR ---
PATIENT HAS A LARGE BRUISE TO THE CHEST FROM FALLING ON SUNDAY AT THE ORCHARDS OF THE HANDLE OF THE WHEELCHAIR. HE HAS ABRASIONS TO THE LEFT KNEE AND THE BACK OF THE SCALP THESE HAPPENED DUE TO A FALL TWO DAYS AGO AT THE [facility].
--- NOTE | 2018-06-17 21:34 | NUR ---
CRITICAL LAB LACTIC ACID 2.1. DR TY NOTIFIED
[2018-06-17 21:43] LABS: ALBUMIN 3.6 gm/dl (3.1-4.5); ALKALINE PHOSPHATASE 80 U/L (45-117); BUN 12 mg/dl (7-24); CHLORIDE 100 mmol/L (98-107); CREATININE 0.78 mg/dL (0.70-1.30); POTASSIUM 3.9 mmol/L (3.5-5.1); SGOT/AST 60 IU/L (3-35); SGPT/ALT 38 U/L (12-78); SODIUM 136 mmol/L (136-145); TOTAL PROTEIN 6.7 gm/dL (6.4-8.2)
[2018-06-17 21:48] LABS: ATYPICAL LYMPHS 1 % (0-0); BASOPHILS 1 % (0-1); PLATELET SUFFICIENCY NORMAL (NORMAL); TOTAL CELLS COUNTED 100 #CELLS; TROPONIN I 0.286 ng/ml (<0.045)
--- NOTE | 2018-06-17 21:56 | NUR ---
Notifed by lab, Pt troponin of 0.286, Dr. Ca and Swetha RN notifed.
[2018-06-17 22:25] VITALS: BP 126/53
[2018-06-17 22:50] VITALS: BP 110/47
[2018-06-17 23:02] VITALS: BP 119/52
--- NOTE | 2018-06-17 23:02 | NUR ---
A 78, admitted to ICCU, under the services of ELOY Hwang DO with a diagnosis of METABOLIC ENCEPHALOPHATY HCAP ELEVATED TROPONIN SEPSIS. Chief complaint is FEVERS ON AND OFF ALL DAY. Patient arrived via bed from ER. Monitor applied. Initial assessment completed. Vital signs taken and recorded. ELOY HWANG DO notified of admission to the unit. Orders received. See assessment for past medical history, medications and allergies. Patient and/or family oriented to unit. [facility]U visitation policy reviewed. Clothing/patient valuable form completed. LINDA GOODSON
[2018-06-17] MEDS ORDERED: AQUAPHOR WITH N50 GM T (23:24)
[2018-06-17] MEDS ORDERED: IMODIUM A-D2 M2 PO (23:28)
[2018-06-18] VITALS: BP 119/52
--- NOTE | 2018-06-18 00:15 | NUR ---
DOCTOR SMITH CONSULTED SAID TO JUST DO A COUPLE MORE TROPONINS AND WATCH THE PATIENT OVER NIGHT HE WILL SEE IN THE MORNING AND ALSO TO JUST HOLD OFF ON THE HEPARIN DRIP FOR NOW.
[2018-06-18 00:51] LABS: BILIRUBIN NEGATIVE (NEGATIVE); BLOOD 2+ (NEGATIVE); CLARITY CLOUDY (CLEAR); COLOR YELLOW (YELLOW); GLUCOSE NEGATIVE (NEGATIVE); KETONE TRACE (NEGATIVE); LEUKO ESTERASE 2+ (NEGATIVE); NITRITE POSITIVE (NEGATIVE); SPECIFIC GRAVITY 1.025 (1.005-1.030); UROBILINOGEN 0.2 E.U./dl (0.2-1.0)
[2018-06-18 00:58] LABS: BACTERIA 2+; RBC 41-50 rbc/hpf (0-2); WBC 41-50 wbc/hpf (0-5)
[2018-06-18 04:00] VITALS: BP 132/60
[2018-06-18 06:07] LABS: BASO % 0.3 % (0.0-1.0); EOS # 0.1 10*3/uL (0.0-0.4); EOS % 0.8 % (1.0-4.0); HEMATOCRIT 37.3 % (42.0-52.0); HEMOGLOBIN 12.2 g/dl (14.0-18.0); LYMPH # 1.1 10*3/uL (1.3-4.4); LYMPH % 9.7 % (27.0-41.0); MEAN CELL VOLUME 88.2 fl (80.0-94.0); MEAN CORPUSCULAR HGB 28.8 pg (27.0-31.0); MEAN CORPUSCULAR HGB CONC 32.7 g/dl (33.0-37.0); MEAN PLATELET VOLUME 9.6 fl (9.6-12.3); MONO # 1.2 10*3/uL (0.1-1.0); MONO % 9.9 % (3.0-9.0); NEUT # 9.3 10*3/uL (2.3-7.9); NEUT % 78.8 % (47.0-73.0); PLATELET COUNT AUTOMATED 169 10*3/uL (130-400); RED BLOOD COUNT 4.23 10*6/uL (4.50-5.90); WHITE BLOOD COUNT 11.7 10*3/uL (4.8-10.8)
[2018-06-18 06:24] LABS: ALBUMIN 2.9 gm/dl (3.1-4.5); ALKALINE PHOSPHATASE 72 U/L (45-117); BUN 12 mg/dl (7-24); CHLORIDE 100 mmol/L (98-107); CREATININE 0.69 mg/dL (0.70-1.30); PHOSPHOROUS 3.4 mg/dL (2.5-4.9); POTASSIUM 4.1 mmol/L (3.5-5.1); SGOT/AST 68 IU/L (3-35); SGPT/ALT 58 U/L (12-78); SODIUM 135 mmol/L (136-145)
[2018-06-18 08:00] VITALS: BP 166/83
[2018-06-18 12:00] VITALS: BP 150/84
[2018-06-18 16:00] VITALS: BP 147/90
--- NOTE | 2018-06-18 16:29 | NUR ---
TEMPERATURE 101.7/T. MEDICATED WITH TYLENOL PER PRN ORDER. WILL CONTINUE TO MONITOR.
[2018-06-18 20:00] VITALS: BP 161/75
--- NOTE | 2018-06-18 21:02 | NUR ---
TEMP OF 100.7. PT MEDICATED WITH TYLENOL 650MG PO AT THIS TIME.
[2018-06-19] VITALS: BP 110/64
[2018-06-19 04:00] VITALS: BP 150/80
[2018-06-19 05:45] LABS: ALBUMIN 2.7 gm/dl (3.1-4.5); ALKALINE PHOSPHATASE 75 U/L (45-117); BUN 9 mg/dl (7-24); CHLORIDE 105 mmol/L (98-107); CREATININE 0.56 mg/dL (0.70-1.30); PHOSPHOROUS 2.3 mg/dL (2.5-4.9); POTASSIUM 3.7 mmol/L (3.5-5.1); SGOT/AST 49 IU/L (3-35); SGPT/ALT 65 U/L (12-78); SODIUM 140 mmol/L (136-145); TOTAL PROTEIN 5.8 gm/dL (6.4-8.2)
[2018-06-19 06:00] LABS: BASO % 0.4 % (0.0-1.0); EOS # 0.1 10*3/uL (0.0-0.4); EOS % 0.9 % (1.0-4.0); HEMATOCRIT 35.3 % (42.0-52.0); HEMOGLOBIN 11.9 g/dl (14.0-18.0); LYMPH # 1.2 10*3/uL (1.3-4.4); LYMPH % 14.5 % (27.0-41.0); MEAN CORPUSCULAR HGB 29.7 pg (27.0-31.0); MEAN CORPUSCULAR HGB CONC 33.7 g/dl (33.0-37.0); MEAN PLATELET VOLUME 10.3 fl (9.6-12.3); MONO # 0.9 10*3/uL (0.1-1.0); MONO % 10.6 % (3.0-9.0); NEUT # 6.2 10*3/uL (2.3-7.9); NEUT % 73.4 % (47.0-73.0); PLATELET COUNT AUTOMATED 176 10*3/uL (130-400); RED BLOOD COUNT 4.01 10*6/uL (4.50-5.90); RED CELL DISTRI WIDTH 13.8 % (0-14.5); WHITE BLOOD COUNT 8.5 10*3/uL (4.8-10.8)
--- NOTE | 2018-06-19 07:49 | NUR ---
NORMA JAIN [id number] Please refer to the physician's history and physical for past medical history, comorbid conditions, and allergies. Diagnosis: METABOLIC ENCEPHALOPATHY HCAP SEVERE SEPSIS Arnoldo Score: 15,AT RISK WOUND DESCRIPTIONS: Location of the wound: left knee Thickness: Partial Size: 1.7cm x 2.0cm x 0.1cm Tunneling: none Undermining: none Sinus Tract: none Presence of Exudate: none Amount: None Color: Red Odor: None Periwound Skin Appearance: Normal Wound edges: approximated Pain (associated with wound): none at time of assessment How does patient state this happened? Pt stated he has Parkinsons and tends to fall pretty often. Location of the wound: back of scalp Thickness: Partial Size: 0.7cm x 0.3cm x 0.1cm Tunneling: none Undermining: none Sinus Tract: none Presence of Exudate: Serosanguineous Amount: Light Color: Red Odor: None Periwound Skin Appearance: Normal Wound edges: approximated Pain (associated with wound): none at time of assessment How does patient state this happened? Pt stated he has Parkinsons and tends to fall pretty often. Surface the patient is resting on: Isoflex SKIN PREVENTION RECOMMENDATION: 1. Pressure redistribution support surface as appropriate 2. Elevate heels 3. Remove boots/TEDS every shift and reapply 4. Head of bed 30 degrees as tolerated 5. Assess nutrition and hydration 6. Manage moisture 7. Avoid the use of containment devices while in bed 8. Use absorptive products on surfaces limit layers of linens on bed 9. Turn and reposition every 1-2 hours in bed and every 1 hour in chair as tolerated 10. Weight shifts every 15 minutes while up in chair 11. Offloading with pillows or device to keep heels elevated off bed 12. Monitor skin at least every shift 13. Inspect under medical devices twice a day WOUND TREATMENT RECOMMENDATIONS: d/c stage 3&4 guidelines Partial thickness guidelines: Cleanse back of head and left knee with nss and apply sureprep around the wound therahoney to wound bed and cover knee with optifoam gentle and back of head with stratasorb.
[2018-06-19 08:00] VITALS: BP 152/76
--- NOTE | 2018-06-19 08:30 | NUR ---
Taker Off Hemp Fiber in to see patient. He is sitting up in the bedside chair without distress noted. He is currently at [facility] and would like to return there upon discharge. Discharge planer following.
--- NOTE | 2018-06-19 09:02 | NUR ---
Dr. Roberto notified of wound care orders needed.
--- NOTE | 2018-06-19 09:11 | NUR ---
PHYSICAL THERAPY PAtient evaluated in ICCU, full evaluation to follow. Continue with PT as per plan of care with fall, Parkinsons, 02 and cardiac precautions. Will require return to SNF. PAtient is moderate complexity via chart review, tests and evaluation: 15382. Thank you for this referral. Ellen Braswell,PT
--- NOTE | 2018-06-19 09:37 | NUR ---
Occupational Therapy evaluated compelted in ICU with full eval to follow. Precautions: IV site, O2, fall risk, Parkinsons, impulsive. High complexity level 86193. Recommend SNF. Work on increasing endurance and safety for increased independence with ADL tasks. Thank you for this referral, Leela Dallas OTR/L
--- NOTE | 2018-06-19 11:20 | NUR ---
PT WAS INSTRUCTED ON FLUTTER. PT TOLERATED WELL. PT CAN DO ON HIS OWN.
[2018-06-19 12:00] VITALS: BP 141/55
--- NOTE | 2018-06-19 13:50 | NUR ---
PHYSICAL THERAPY Patient seen this pm 1:1 for therapy visit and was supine in bed upon therapist arrival. Patient presented with continuous O2-2L via NC and was joined by his daughter who stopped for a visit. Patient reports no new c/o's at this time and transfers supine to sit EOB with MIN A x 1, then sit to stand CGA x 1. Patient with use of walker support for all standing activites and ambulates 25'x 2, walker, CGA, demonstrating "head down" posture due to prior vision deficits. Patient also demonstrated several bouts of unsteady step sequence, especially during 90/180 turns and needed several v/c's to complete gait ex. Patient returned to w/ following treatment to be transported to [facility]- by ICCU nurse. Will continue per POC as tolerated, total treatment time 17 minutes. Winston Conner, FLORAL CLERK
--- NOTE | 2018-06-19 14:00 | NUR ---
OT NOTE Pt was seen this P.M. 1:1 for 27 minute OT session. Upon arrival pt was supine in bed, pt identified by name and . Pt had no complaints at this time. Pt transferred supine to sit EOB with CGA. Challenged pt's sitting balance needed for increased I and enhanced safety in self care tasks and functional transfers. Pt was able to maintain G- sitting balance throughout. Sit to stand completed from bed level with Tiffanie and use of w/w for UE support. Functional mobility completed to bedside commode with CGA and use of w/w for UE support. Pt transferred on/off bedside commode with CGA, clothing managment completed with modA, and toilet hygiene completed with modA. While standing challenged pt's static standing tolerance needed for increased I in self care tasks and increased activity tolerance, pt was able to tolerate aprox 5 minutes before sitting due to fatigue. Pt transferred back to EOB with CGA and use of w/w where he was left sitting upright under ICCU nurse supervision. Continue with rec D/C plan to SNF. AYLIN Coronado/Jovita
--- NOTE | 2018-06-19 15:19 | NUR ---
According to Aubree from [facility], patient is transitioning from short term care to [facility]. Patient is ok to return when medically stable for discharge.
--- NOTE | 2018-06-19 15:21 | NUR ---
REPORT RECIEVED FROM ICU NURSE. PATIENT WAS ASSESSED HEAD TO TOE WITH NOTHING ACUTE AT THIS TIME. FAMILY IN AT BEDSIDE WITH NO COMPLAINTS OR QUESTIONS AT THIS TIME. PATIENT IS A/OX3, AND DENIES PAIN.
[2018-06-19 16:00] VITALS: BP 182/74
[2018-06-19 20:00] VITALS: BP 164/64
[2018-06-20] VITALS: BP 160/70
--- NOTE | 2018-06-20 03:09 | NUR ---
24 HR chart check completed.
--- NOTE | 2018-06-20 03:54 | NUR ---
Recommend follow up for wound care in outpatient setting patient being discharge to another facility at this time.
--- NOTE | 2018-06-20 04:11 | NUR ---
PATIENT MEDICATED WITH TYLENOL PER PRN ORDER FOR C/O DISCOMFORT. SEE EMAR. REINFORCED USE OF CALL LIGHT
[2018-06-20 06:32] LABS: BASO % 0.4 % (0.0-1.0); EOS # 0.2 10*3/uL (0.0-0.4); EOS % 3.1 % (1.0-4.0); HEMATOCRIT 33.4 % (42.0-52.0); HEMOGLOBIN 11.1 g/dl (14.0-18.0); LYMPH # 1.2 10*3/uL (1.3-4.4); LYMPH % 22.8 % (27.0-41.0); MEAN CELL VOLUME 87.9 fl (80.0-94.0); MEAN CORPUSCULAR HGB 29.2 pg (27.0-31.0); MEAN CORPUSCULAR HGB CONC 33.2 g/dl (33.0-37.0); MEAN PLATELET VOLUME 10.1 fl (9.6-12.3); MONO # 0.7 10*3/uL (0.1-1.0); MONO % 13.3 % (3.0-9.0); NEUT # 3.3 10*3/uL (2.3-7.9); PLATELET COUNT AUTOMATED 186 10*3/uL (130-400); RED CELL DISTRI WIDTH 13.7 % (0-14.5); WHITE BLOOD COUNT 5.4 10*3/uL (4.8-10.8)
[2018-06-20 06:59] LABS: ALBUMIN 2.7 gm/dl (3.1-4.5); ALKALINE PHOSPHATASE 74 U/L (45-117); BUN 10 mg/dl (7-24); CHLORIDE 106 mmol/L (98-107); CREATININE 0.53 mg/dL (0.70-1.30); PHOSPHOROUS 2.9 mg/dL (2.5-4.9); POTASSIUM 3.4 mmol/L (3.5-5.1); SGOT/AST 44 IU/L (3-35); SGPT/ALT 65 U/L (12-78); SODIUM 144 mmol/L (136-145); TOTAL PROTEIN 5.6 gm/dL (6.4-8.2)
--- NOTE | 2018-06-20 07:28 | NUR ---
Faxed patient updates to [facility] for review, notified facility patient is positive for ESBL in urine. Waiting on review.
--- NOTE | 2018-06-20 07:47 | NUR ---
OT NOTE Pt was seen this A.M. 1:1 for 25 minute OT session. Upon arrival pt was supine in bed, pt identified by name and . Pt had no complaints at this time and presented to therapy with continous 2L-O2 via NC which he remained on throughout entire session. Pt transferred supine to sit EOB with SBA and use of bed rail. Pt then completed sit to stand from bed level with Tiffanie followed by functional mobility into the bathroom with CGA and use of w/w for UE support. Pt required verbal instructions to take bigger steps versus shuffling his feet. There he transferred on/off standard commode with CGA for safety and use of grab bar. Clothing management completed with Tiffanie and toilet hygiene completed with modA. Pt then stood sink side while washing his hands with CGA. Pt was able to tolerate aprox 3-4 minutes of static standing before sitting due to fatigue. Pt returned to the EOB where therapist challenged his sitting balanace needed for increased I and enhanced safety in self care tasks and functional transfers. Pt was able to maintain G- sitting throughout. Pt then transferred sit to supine with SBA where he was left with call light in hand, tray table in place, and bed alarm activated for safety. Continue with rec D/C plan to SNF. AYLIN Coronado/Jovita
[2018-06-20 08:00] VITALS: BP 174/70
--- NOTE | 2018-06-20 08:30 | NUR ---
Casework Supervisor in to see patient. No new needs or request at this time. When medically stable he will be discharged to [facility]. office workforce planner following.
--- NOTE | 2018-06-20 10:02 | NUR ---
PHYSICAL THERAPY Patient presented to therapy in supine with head of bed elevated. Patient had no complaints. Patient was identified by name and . Patient agrees to therapy session. Patient performed supine to sitting at EOB transfer with SBA. Patient performed STS transfer with SBA. Patient ambulated with W/W and Close Supervision with no spO2 and for 200' x 1 with no LOB or other difficulty. Patient sat on EOB and performed bilateral LE ther ex in all planes of movement for strengthening in order to improve patient's functional mobility. Patient was left in sitting on EOB, call light within reach, and bed alarm activated. Patient tolerated ther ex, transfers, and gait very well. Patient was 1:1 with this SMUTTER for 20 minutes total. ILA SEWELL SMUTTER
--- NOTE | 2018-06-20 10:42 | NUR ---
Patient has a private room at [facility] therefore he is ok to return while under isolation. Patient can return when medically stable for discharge.
[2018-06-20 12:00] VITALS: BP 152/56
[2018-06-20 16:00] VITALS: BP 179/75
[2018-06-20 20:00] VITALS: BP 176/67
[2018-06-21] VITALS: BP 133/53
--- NOTE | 2018-06-21 06:25 | NUR ---
DR. CONLEY NOTIFIED OF POSITIVE BLOOD CULTURES FROM ANAEROBIC BOTTLE FROM 06/17. RESULT GR + BACCILUS.
--- NOTE | 2018-06-21 07:10 | NUR ---
PT DOWN FOR CXR AT THIS TIME.
--- NOTE | 2018-06-21 07:30 | NUR ---
PT BACK FROM CXR.
[2018-06-21 08:00] VITALS: BP 160/58
--- NOTE | 2018-06-21 08:28 | NUR ---
OT NOTE Pt was seen this A.M. 1:1 for 17 minute OT session. Upon arrival pt was supine in bed, pt identified by name and . Pt had no complaints at this time. Pt transferred supine to sit EOB with SBA and use of bed rail. Stand pivot completed to bedside commode with CGA and use of w/w for UE support. There he transferred on/off bedside commode with CGA, clothing management completed with Tiffanie, and toilet hygiene completed with modA. Functional mobility then completed around the room to recliner with CGA and use of w/w with verbal prompts for bigger steps to improve "shuffling" gait increasing risk of falls. Pt's breakfast tray arrived so session was ended at this time. Pt was left sitting upright in recliner with call light in hand, tray table in place, and body alarm activated for safety. Continue with rec D/C plan to SNF. AYLIN Coronado/Jovita
[2018-06-21 08:59] LABS: BUN 7 mg/dl (7-24); CHLORIDE 107 mmol/L (98-107); CREATININE 0.56 mg/dL (0.70-1.30); POTASSIUM 3.4 mmol/L (3.5-5.1); SODIUM 141 mmol/L (136-145)
--- NOTE | 2018-06-21 09:39 | NUR ---
patient comes from [facility] and can return when medically stable for discharge.
--- NOTE | 2018-06-21 09:50 | NUR ---
PHYSICAL THERAPY Patient was resting supine in bed following breakfast this and seen 1:1 for all treatment time. Patient was very pleasant voicing no new c/o's and transfers supine to sit EOB with CGA. Patient performed seated B LE therex, all planes, x 20 each to increase LE strength, followed by several sit to stand transfers, CGA x 1. Patient ambulated with use of wh walker, 70'x 2, CGA, demonstrating smoother clemente with head down posture. Patient still has bouts of unsteady gait pattern during 180 degree turns and occasional episodes of both "freezing" / festinating gait. Patient easlily redirected with v/c to correct and returned to EOB sit. Patient HR 71 bpm prior to treatment, with slight increase to 78 bpm following gait ex. HR returned to baseline within 30 seconds as patient transfers back to bed and remained supine with call light, tray table and bed alarm activated for safety. Will continue per POC as tolerated, total treatment time 24 minutes. Winston Conner, UNDERWATER TRAPPER
[2018-06-21 12:00] VITALS: BP 160/62
--- NOTE | 2018-06-21 14:29 | NUR ---
PHYSICAL THERAPY Patient seen this pm 1:1 for therapy visit and was sitting up in bedside chair with his Daughter present upon therapist arrival. Patient voices no new c/o's and was his usual pleasant self. Patient transfers sit to stand, CGA from low chair surface, requiring several "rocking" motion to complete transfer. Patient ambulates with use of wh walker, CGA, 75' x 2, demonstrating slight head posture and no LOB this session. Patient received v/c for decreased velocity during all turns and returned to bedside chair with only mild fatigue. Pateint remained in chair with call light, tray table and body alarm for safety. Will continue per POC as tolerated, total treatment time 17 minutes. Winston Conner, FLAME GOUGER
[2018-06-21 16:00] VITALS: BP 172/59
--- NOTE | 2018-06-21 16:33 | NUR ---
SPOKE TO DR MARROQUIN REGARDING PT AND PHYSICIAN STATES THAT SHE WOULD LIKE MIDLINE PLACED FOR IV ANTIBIOTICS FOR PT. CALL PLACED TO [facility] TO SEE IF THERE IS A NURSE AT FACILITY THAT CAN PLACE MIDLINE. [facility] NURSE STATES THERE IS NOT A NURSE HERE TODAY THAT CAN PLACE MIDLINE. ADIVSED TO CALL DR METZGER IN ORDER FOR MIDLINE TO BE PLACED. SPOKE TO DR METZGER ON PHONE, PHYSICIAN STATES THAT HE WILL BE IN FACILITY LATER ON IN THE EVENING AND WILL PLACE MIDLINE AT THAT TIME. WILL NOTIFY PM NURSE AND PT.
--- NOTE | 2018-06-21 17:30 | NUR ---
MIDLINE PLACED TO LEFT ARM BY DR METZGER. TOLERATED WELL BY PT. FLUSHING WITH EASE. WILL CONTINUE TO MONITOR. CALL LIGHT IN REACH. FAMILY AT BEDSIDE.
[2018-06-21 20:00] VITALS: BP 170/80
--- NOTE | 2018-06-21 20:03 | NUR ---
PATIENT IS RESTING IN BED WITH EASY AND REGULAR RESPERS ON ROOM AIR. NO C/O OR S/S OF DISTRESS NOTED. BED IS LOW, LOCKED, ALARMED, AND CALL LIGHT IS WITHIN REACH.
--- NOTE | 2018-06-21 21:11 | NUR ---
2200 MEDICATIONS GIVEN, PATIENT TOLERATED WELL. CALL LIGHT IS WITHIN REACH.
--- NOTE | 2018-06-21 23:01 | NUR ---
PATIENT IS SLEEPING WITH EASY AND REGULAR RESPERS ON ROOM AIR. CALL LIGHT IS WITHIN REACH.
[2018-06-22] VITALS: BP 154/75
--- NOTE | 2018-06-22 00:22 | NUR ---
0000 MEDICATIONS GIVEN AT THIS TIME, PATIENT TOLERATED WELL. CALL LIGHT IS WITHIN REACH.
--- NOTE | 2018-06-22 05:45 | NUR ---
0600 MEDICATIONS GIVEN AT THIS TIME, PATIENT TOLERATED WELL. NO C/O OR S/S OF DISTRESS. CALL LIGHT IS WITHIN REACH.
[2018-06-22 08:00] VITALS: BP 160/60
[2018-06-22 12:00] VITALS: BP 125/55
[2018-06-22] MEDS ORDERED: LOSARTAN POTASS25 M1 PO (13:19)
[2018-06-22] MEDS ORDERED: ERTAPENEM1 GM IV (13:19)
--- NOTE | 2018-06-22 13:41 | NUR ---
NURSE TO NURSE REPORT GIVEN TO MELANIE HEATON AT [facility].
--- NOTE | 2018-06-22 14:46 | NUR ---
IV REMOVED FOR DISCHARGE. PT REFUSING DISCHARGE PICS AND MEASUREMENTS OF KNEE AND HEAD WOUND AT THIS TIME.
--- NOTE | 2018-06-22 14:53 | NUR ---
[facility] IN TO GET PT AT THIS TIME.
--- NOTE | 2018-06-22 14:58 | NUR ---
Discharge instructions reviewed with patient/family. Patient receptive and verbalizes understanding. Follow-up care arranged. Written instructions given to patient/family. SHAWN MELGOZA
--- NOTE | 2018-06-24 07:01 | NUR ---
PHYSICAL THERAPY CO-SIGN I approve of the Phyical Therapy notes written above. NINA CUNHA PT
--- NOTE | 2018-06-24 08:12 | NUR ---
OCCUPATIONAL THERAPY CO-SIGN I approve of the Occupational Therapy notes written above. DEON MORALES OTR/Jovita
[2018-06-26 15:03] LABS: ORGANISM ID Final report (.)
[2018-07-18] MEDS ORDERED: MACROBID100 M1 PO (02:21)
== END 2018-06-22 14:58 | DRG 871 ==
LOC: ED 20:26 → EDHOLD 22:12 → 5E 22:12 → ICCU 22:12 → 5E 06-19 14:21
PROVIDERS: Family Medicine; Internal Medicine; Student in an Organized Health Care Education/Training Program; ADMIT Internal Medicine
DX: A41.9 Sepsis, unspecified organism (principal); R65.20 Severe sepsis without septic shock; J18.9 Pneumonia, unspecified organism; N39.0 Urinary tract infection, site not specified; G93.41 Metabolic encephalopathy; E43 Unspecified severe protein-calorie malnutrition; I21.A1 Myocardial infarction type 2; I50.32 Chronic diastolic (congestive) heart failure; I25.810 Atherosclerosis of coronary artery bypass graft(s) without angina pectoris; E87.1 Hypo-osmolality and hyponatremia; R06.82 Tachypnea, not elsewhere classified; R74.0 Nonspecific elevation of levels of transaminase and lactic acid dehydrogenase [LDH]; E83.39 Other disorders of phosphorus metabolism; G20 Parkinson's disease; R53.1 Weakness; K57.90 Diverticulosis of intestine, part unspecified, without perforation or abscess without bleeding; R29.6 Repeated falls; D64.9 Anemia, unspecified; E66.3 Overweight; K21.9 Gastro-esophageal reflux disease without esophagitis; B96.20 Unspecified Escherichia coli [E. coli] as the cause of diseases classified elsewhere; E11.9 Type 2 diabetes mellitus without complications; I08.1 Rheumatic disorders of both mitral and tricuspid valves; E87.6 Hypokalemia; I11.0 Hypertensive heart disease with heart failure; N40.1 Benign prostatic hyperplasia with lower urinary tract symptoms; E78.5 Hyperlipidemia, unspecified; R35.0 Frequency of micturition; C61 Malignant neoplasm of prostate; Z95.3 Presence of xenogenic heart valve; Z95.0 Presence of cardiac pacemaker; Z88.8 Allergy status to other drugs, medicaments and biological substances; Z87.442 Personal history of urinary calculi; Z90.49 Acquired absence of other specified parts of digestive tract; Z95.1 Presence of aortocoronary bypass graft; Z82.0 Family history of epilepsy and other diseases of the nervous system; Z82.49 Family history of ischemic heart disease and other diseases of the circulatory system; Z83.79 Family history of other diseases of the digestive system; Z79.899 Other long term (current) drug therapy; Z79.82 Long term (current) use of aspirin; Z68.25 Body mass index [BMI] 25.0-25.9, adult

== ENCOUNTER 2018-06-27 18:07 | Emergency (ER) | payer MEDICARE ==
[~2018-06-27] VITALS: Wt 83.5 kg
--- NOTE | ~2018-06-27 | EKG ---
[place], [place] ELECTROCARDIOGRAM REPORT NAME: NORMA JAIN UNIT #: [id number] ROOM: DOCTOR: EPIPHANY DRAFT REPORT BIRTHDATE: [birth year] [facility] Test Date: 2018-06-27 Test Time: 18:30:44 Pat Name: NORMA JAIN Department: Room: Gender: Camera Mechanic: : 1940 Requested By: REINIER DINERO Order Number: [id number] Reading MD: Farhad Singh MD Measurements Intervals [place] Rate: 64 P: -2 LA: 218 QRS: -39 QRSD: 132 T: 90 QT: 447 QTc: 462 Interpretive Statements Normal sinus rhythm Atrial-sensed ventricular-paced complexes No further analysis attempted due to paced rhythm Compared to ECG 06/18/2018 02:57:35 No significant changes Electronically Signed On 06-28-2018 10:34:58 PST by Farhad Singh MD CM:EKGRPT:ELECTROCARDIOGRAM REPORT 1830 1034 REINIER STAPLETON DRAFT REPORT REINIER DINERO M.D.
[~2018-06-27 18:07] MED LIST changes: +AQUAPHOR WITH N50 GM T; +ERTAPENEM1 GM IV; +IMODIUM A-D2 M2 PO; +LOSARTAN POTASS25 M1 PO
[2018-06-27 19:14] VITALS: BP 119/56
[2018-07-18] MEDS ORDERED: MACROBID100 M1 PO (02:21)
== END 2018-06-27 20:00 | disposition short-term general hospital (02) ==
LOC: ED 18:07
DX: G45.9 Transient cerebral ischemic attack, unspecified (principal); G20 Parkinson's disease; Z88.8 Allergy status to other drugs, medicaments and biological substances; Z79.899 Other long term (current) drug therapy; Z79.82 Long term (current) use of aspirin; Z90.49 Acquired absence of other specified parts of digestive tract; Z95.1 Presence of aortocoronary bypass graft; Z95.0 Presence of cardiac pacemaker

== ENCOUNTER 2018-07-22 22:00 | Inpatient (IN) | payer MEDICARE ==
[~2018-07-22] VITALS: Ht 180.3 cm; Wt 81.2 kg
--- NOTE | ~2018-07-22 | PR ---
[place], [place] PROGRESS NOTE [id number] UNIT #: [id number] ROOM: 405 DOCTOR: DARRON ERNST MD BIRTHDATE: [birth year] DOS: 07/24/2018 CARDIOLOGY PROGRESS NOTE SUBJECTIVE: The patient was seen at his bedside today, 07/24/2018, with his daughter in attendance. He feels better today after receiving adequate fluid resuscitation. He denies any chest discomfort and his breathing is normal. His pacemaker was interrogated yesterday, it is functioning normally. He has not had any evidence for atrial arrhythmias since the last time the device was interrogated several weeks ago. PHYSICAL EXAMINATION: VITAL SIGNS: Today, his pulse is 60 and regular, blood pressure is 156/62, he is afebrile. NECK: Supple. He has no jugular distention. Carotids are full. LUNGS: Respirations are unlabored. Chest is clear with decreased breath sounds at the bases. HEART: Has a regular rhythm. He has grade 1/6 systolic ejection murmur along the left sternal border. There is no diastolic murmur. ABDOMEN: Benign. EXTREMITIES: Showed no edema. He does seem to be doing well from a cardiac standpoint and therefore, no further workup or change in medication is indicated at this time. IMPRESSION: 1. History of coronary artery disease, status post 5-vessel bypass in the year 1999. 2. History of severe aortic stenosis, status post transaortic valve replacement in 2014 at [facility]. 3. Atypical chest pain and dyspnea with minimally elevated troponin. No evidence for acute myocardial infarction. 4. Hypertensive urgency on admission, resolved. 5. History of Parkinson's disease. 6. Severe sepsis due to urinary tract infection. No other cardiac change in evaluation or management is indicated at this time. From our perspective, he may be discharged back to the senior living. I thank the hospitalist physicians for asking our advice regarding his care. [place], [place] PROGRESS NOTE NAME: NORMA JAIN Aden UNIT #: [id number] ROOM: 405 DOCTOR: DARRON ERNST MD BIRTHDATE: [birth year] DARRON ERNST MD CM:PNTRANS [id number] DARRON ERNST MD 07/25/18 0422 interface
--- NOTE | ~2018-07-22 | EKG ---
[place], [place] ELECTROCARDIOGRAM REPORT NAME: NORMA JAIN UNIT #: [id number] ROOM: 405 DOCTOR: PIETER DRAFT REPORT BIRTHDATE: [birth year] [facility] Test Date: 2018-07-23 Test Time: 00:33:09 Pat Name: NORMA JAIN Department: Room: 405 Gender: M Process Controls Technician: EMMIE : 1940 Requested By: NENITA TY Order Number: [id number] Reading MD: Farhad Singh MD Measurements Intervals [place] Rate: 79 P: MA: QRS: -39 QRSD: 144 T: 125 QT: 437 QTc: 502 Interpretive Statements Sinus tachycardia Pacemaker present with atrial tracking and ventricular pacing Frequent premature ventricular contractions Compared to ECG 06/27/2018 18:30:44 PVCs are now present Electronically Signed On 07-23-2018 9:14:18 PST by Farhad Singh MD CM:EKGRPT:ELECTROCARDIOGRAM REPORT 0033 0914 NENITA BARR DRAFT REPORT NENITA TY DO
--- NOTE | ~2018-07-22 | EKG ---
[place], [place] ELECTROCARDIOGRAM REPORT NAME: NORMA JAIN UNIT #: [id number] ROOM: 405 DOCTOR: PIETER DRAFT REPORT BIRTHDATE: [birth year] [facility] Test Date: 2018-07-23 Test Time: 04:02:10 Pat Name: NORMA JAIN Department: Room: 405 Gender: M Director Business Integration: EMMIE : 1940 Requested By: NENITA TY Order Number: [id number] Reading MD: Farhad Singh MD Measurements Intervals [place] Rate: 62 P: -15 [place]: 226 QRS: -43 QRSD: 129 T: 138 QT: 459 QTc: 467 Interpretive Statements A-V dual-paced complexes w/ some inhibition No further analysis attempted due to paced rhythm Compared to earlier ECG this date PVCs are no longer present Electronically Signed On 07-23-2018 9:20:01 PST by Farhad Singh MD CM:EKGRPT:ELECTROCARDIOGRAM REPORT [id number] 0920 NENITA BARR DRAFT REPORT NENITA TY DO
--- NOTE | ~2018-07-22 | EKG ---
[place], [place] ELECTROCARDIOGRAM REPORT NAME: NORMA JIAN UNIT #: [id number] ROOM: 405 DOCTOR: PIETER DRAFT REPORT BIRTHDATE: [birth year] [facility] Test Date: 2018-07-22 Test Time: 22:05:00 Pat Name: NORMA JAIN Department: Room: 405 Gender: M Public Speaker: : 1940 Requested By: NENITA TY Order Number: [id number] Reading MD: Farhad Singh MD Measurements Intervals [place] Rate: 70 P: -40 [place]: 222 QRS: -46 QRSD: 128 T: 119 QT: 421 QTc: 455 Interpretive Statements Atrial sensed and ventricular-paced complexes Compared to ECG 06/27/2018 18:30:44 No significant change Electronically Signed On 07-23-2018 20:13:05 PST by Farhad Singh MD CM:EKGRPT:ELECTROCARDIOGRAM REPORT 04 2013 NENITA BARR DRAFT REPORT NENITA TY DO
[~2018-07-22 22:00] MED LIST changes: +MACROBID100 M1 PO
[2018-07-22 22:04] VITALS: BP 175/83
[2018-07-22 22:29] LABS: BASO # 0.1 10*3/uL (0.0-0.1); BASO % 0.5 % (0.0-1.0); EOS # 0.6 10*3/uL (0.0-0.4); EOS % 5.6 % (1.0-4.0); HEMATOCRIT 38.4 % (42.0-52.0); LYMPH # 1.9 10*3/uL (1.3-4.4); MEAN CELL VOLUME 85.5 fl (80.0-94.0); MEAN CORPUSCULAR HGB CONC 33.9 g/dl (33.0-37.0); MEAN PLATELET VOLUME 9.3 fl (9.6-12.3); MONO % 9.9 % (3.0-9.0); NEUT # 6.8 10*3/uL (2.3-7.9); NEUT % 65.4 % (47.0-73.0); PLATELET COUNT AUTOMATED 248 10*3/uL (130-400); RED BLOOD COUNT 4.49 10*6/uL (4.50-5.90); RED CELL DISTRI WIDTH 13.4 % (0-14.5); WHITE BLOOD COUNT 10.5 10*3/uL (4.8-10.8)
[2018-07-22 22:40] LABS: ACT PARTIAL THROMBO TIME 24.4 SECONDS (20.8-31.5); INTERNATIONAL NORM RATIO 1.1 (2.0-3.5)
[2018-07-22 22:47] LABS: ALBUMIN 3.3 gm/dl (3.1-4.5); ALKALINE PHOSPHATASE 68 U/L (45-117); BUN 12 mg/dl (7-24); CHLORIDE 100 mmol/L (98-107); CREATININE 0.74 mg/dL (0.70-1.30); POTASSIUM 3.3 mmol/L (3.5-5.1); SGOT/AST 21 IU/L (3-35); SGPT/ALT 13 U/L (12-78); SODIUM 136 mmol/L (136-145); TOTAL PROTEIN 6.4 gm/dL (6.4-8.2)
[2018-07-22 22:48] LABS: TROPONIN I 0.044 ng/ml (<0.045)
[2018-07-22 22:59] VITALS: BP 200/100
[2018-07-22 23:26] VITALS: BP 150/74
[2018-07-23] VITALS (7 sets, daily range): BP systolic 126–200; BP diastolic 53–84
--- NOTE | 2018-07-23 00:10 | NUR ---
PATIENT EXTREMEMLY DIAPHORETIC. DENIES CHEST PAIN, DIZZINESS. BGL OF 165. FELIPE JIMENEZ AND DR. PHILLIPS NOTIFIED
--- NOTE | 2018-07-23 01:20 | NUR ---
A 78, admitted to , under the services of MARY JO Nuno DO with a diagnosis of CHEST PAIN. Chief complaint is CHEST PAIN. Patient arrived via ambulance from ER. Monitor applied. Initial assessment completed. Vital signs taken and recorded. MARY JO NUNO DO notified of admission to the unit. Orders received. See assessment for past medical history, medications and allergies. Patient and/or family oriented to unit. [facility]. Clothing/patient valuable form completed. JESSICA MGCRATH
--- NOTE | 2018-07-23 01:57 | NUR ---
DR. MAYO NOTIFIED OF LACTIC ACID OF 2.6 AND IVF INFUSING AT THIS TIME. NO N.O. RCVD AT THIS TIME.
[2018-07-23] MEDS ORDERED: AQUAPHOR396 GM T ×2 (02:09→02:10)
[2018-07-23] MEDS ORDERED: LIPITOR40 MG PO (02:12)
[2018-07-23] MEDS ORDERED: CITALOPRAM HYDR10 MG PO (02:15)
[2018-07-23] MEDS ORDERED: D3 DOTS2000 UNIT PO (02:16)
[2018-07-23] MEDS ORDERED: COREG25 MG PO (02:17)
[2018-07-23] MEDS ORDERED: IMODIUM A-D2 M2 PO (02:20)
[2018-07-23] MEDS ORDERED: VISTARIL25 M2 PO (02:24)
--- NOTE | 2018-07-23 02:27 | NUR ---
MED REC COMPLETE WITH PAPERS FROM RETIREMENT
[2018-07-23 04:08] LABS: BASO # 0.1 10*3/uL (0.0-0.1); BASO % 0.5 % (0.0-1.0); EOS # 0.6 10*3/uL (0.0-0.4); EOS % 5.6 % (1.0-4.0); HEMOGLOBIN 12.3 g/dl (14.0-18.0); LYMPH # 1.9 10*3/uL (1.3-4.4); LYMPH % 18.1 % (27.0-41.0); MEAN CELL VOLUME 84.9 fl (80.0-94.0); MEAN CORPUSCULAR HGB CONC 34.2 g/dl (33.0-37.0); MEAN PLATELET VOLUME 9.2 fl (9.6-12.3); MONO % 9.8 % (3.0-9.0); NEUT # 6.7 10*3/uL (2.3-7.9); NEUT % 65.5 % (47.0-73.0); PLATELET COUNT AUTOMATED 228 10*3/uL (130-400); RED BLOOD COUNT 4.24 10*6/uL (4.50-5.90); RED CELL DISTRI WIDTH 13.6 % (0-14.5); WHITE BLOOD COUNT 10.3 10*3/uL (4.8-10.8)
[2018-07-23 04:18] LABS: ACT PARTIAL THROMBO TIME 25.1 SECONDS (20.8-31.5); INTERNATIONAL NORM RATIO 1.1 (2.0-3.5)
--- NOTE | 2018-07-23 04:18 | NUR ---
DR. MAYO NOTIFIED OF CRITICAL LACTIC ACID OF 2.7.
[2018-07-23 04:22] LABS: ALBUMIN 3.4 gm/dl (3.1-4.5); ALKALINE PHOSPHATASE 61 U/L (45-117); BUN 11 mg/dl (7-24); CHLORIDE 104 mmol/L (98-107); CREATININE 0.62 mg/dL (0.70-1.30); PHOSPHOROUS 3.7 mg/dL (2.5-4.9); POTASSIUM 3.3 mmol/L (3.5-5.1); SGOT/AST 20 IU/L (3-35); SGPT/ALT 15 U/L (12-78); SODIUM 139 mmol/L (136-145); TOTAL PROTEIN 5.9 gm/dL (6.4-8.2)
--- NOTE | 2018-07-23 06:27 | NUR ---
DR. MAYO NOTIFIED OF CRITICAL LACTIC ACID OF 2.5. NO N.O. RCVD AT THIS TIME.
[2018-07-23 06:40] LABS: BILIRUBIN NEGATIVE (NEGATIVE); BLOOD NEGATIVE (NEGATIVE); CLARITY CLEAR (CLEAR); COLOR YELLOW (YELLOW); GLUCOSE NEGATIVE (NEGATIVE); KETONE TRACE (NEGATIVE); LEUKO ESTERASE NEGATIVE (NEGATIVE); NITRITE NEGATIVE (NEGATIVE); PH 5.5 (5.0-9.0); SPECIFIC GRAVITY 1.025 (1.005-1.030); UROBILINOGEN 0.2 E.U./dl (0.2-1.0)
[2018-07-23 07:01] LABS: MUCOUS TRACE
--- NOTE | 2018-07-23 08:53 | NUR ---
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
--- NOTE | 2018-07-23 10:05 | NUR ---
IVF INFUSING AT 150 CC/HR PER ORDER FROM DR. ERNST/DR SALAZAR. DR MONROY NOTIFIED AND STATED SHE WANTS IT TO RUN AT 100CC/HR. NORMAL SALINE BOLUS ALSO ORDERED THAT DR. MONROY STATES TO NOT RUN. IVF INFUSING AT 100 CC/HR PER DR. MONROY.
--- NOTE | 2018-07-23 10:24 | NUR ---
PT IS PRISON CARE AT CARE AT [facility] AND CAN RETURN ON DISCHARGE. WILL CONTINUE TO FOLLOW.
--- NOTE | 2018-07-23 10:30 | NUR ---
PATIENT'S DAUGHTER AND HEALTHCARE POA DOES NOT WISH FOR THE PATIENT TO HAVE CELEXA. DR. MONROY INFORMED.
--- NOTE | 2018-07-23 14:31 | NUR ---
Occupational Therapy evaluation completed on 4 with full eval to follow. Precautions include fall risk;bed/chair alarm, IV UE, assist with ADls. Patient is moderate complexity level 28454 via chart review, testing and evaluation. Recommend no further OT as patient is at baseline for ADLs, and can benefit from return to LTC as PLOF. Thank you. Kayce Liang OTR/l
--- NOTE | 2018-07-23 14:49 | NUR ---
PHYSICAL THERAPY PAtient evaluated on 4, full evaluation to follow. Continue with PT as per plan of care with fall, PArkinsons and alarms precautions. Return to LTC as prior. PAtient is moderate complexity via chart review, tests and evaluation: 04663. Thank you for this referral. Ellen Braswell,PT
--- NOTE | 2018-07-23 23:31 | NUR ---
24 HR chart check completed.
[2018-07-24] VITALS: BP 160/74
[2018-07-24 05:59] LABS: BASO # 0.1 10*3/uL (0.0-0.1); BASO % 0.4 % (0.0-1.0); EOS # 0.5 10*3/uL (0.0-0.4); EOS % 4.6 % (1.0-4.0); HEMATOCRIT 34.7 % (42.0-52.0); HEMOGLOBIN 11.5 g/dl (14.0-18.0); LYMPH # 1.8 10*3/uL (1.3-4.4); LYMPH % 15.2 % (27.0-41.0); MEAN CELL VOLUME 85.9 fl (80.0-94.0); MEAN CORPUSCULAR HGB 28.5 pg (27.0-31.0); MEAN CORPUSCULAR HGB CONC 33.1 g/dl (33.0-37.0); MEAN PLATELET VOLUME 9.9 fl (9.6-12.3); MONO % 8.4 % (3.0-9.0); NEUT # 8.2 10*3/uL (2.3-7.9); PLATELET COUNT AUTOMATED 218 10*3/uL (130-400); RED BLOOD COUNT 4.04 10*6/uL (4.50-5.90); RED CELL DISTRI WIDTH 13.6 % (0-14.5); WHITE BLOOD COUNT 11.6 10*3/uL (4.8-10.8)
[2018-07-24 06:15] LABS: BUN 8 mg/dl (7-24); CHLORIDE 103 mmol/L (98-107); POTASSIUM 3.6 mmol/L (3.5-5.1); SODIUM 137 mmol/L (136-145)
[2018-07-24 08:00] VITALS: BP 130/50
--- NOTE | 2018-07-24 08:45 | NUR ---
PHYSICAL THERAPY Patient was resting comfortably in bed this am when approached for therapy and stated he preferred to be seen this afternoon due to feeling tired following breakfast. Will continue per POC as tolerated. Winston Conner, TOBACCO SAMPLE PULLER
--- NOTE | 2018-07-24 09:50 | NUR ---
Patient updated clincals faxed to [facility] for review, patient is [facility] care and can return when medically stable for discharge.
[2018-07-24 12:00] VITALS: BP 156/62
--- NOTE | 2018-07-24 13:08 | NUR ---
PHYSICAL THERAPY Patient seen this pm 1:1 for therapy visit and was sitting EOB upon theapist arrival. Patient voices no new c/o's this afternoon and was joined by his daughter who was visiting. Patient transfers sit to stand CGA and ambulates with use of walker, [facility], 25'x2, demonstrating "head down" posture with several bouts of "festinating" gait pattern during 90 degree turns. Patient also completed toilet transfer with R side grab bar assist, [facility], and demonstrated unsteady standing balance during bathroom navigation. Patient needed several v/c's for BIG steps and "marching" technique to safely complete all turns to decrease festinating gait pattern. Patient returned to bedside chair completing seated marching / LAQ ex x 20 reps each. Patient remained in chair with call light and body alarm for safety. Will continue per POC as tolerated, total treatment time 23 minutes. Winston Conner, CHIEF PROCUREMENT OFFICER
[2018-07-24 16:00] VITALS: BP 106/48
[2018-07-24] MEDS ORDERED: MONUROL3 G1 PO (17:12)
[2018-07-24] MEDS ORDERED: LOSARTAN POTASS25 M1 PO (17:12)
--- NOTE | 2018-07-24 18:00 | NUR ---
Discharge instructions reviewed with patient/family. Patient receptive and verbalizes understanding. Follow-up care understands. Written instructions given to patient/family. LEONOR SALGADO
--- NOTE | 2018-07-24 18:00 | NUR ---
REPORT CALLED TO [facility], THEY ARE AWARE [facility] TO PICK PATIENT UP AT 1900. DISCHARGE ORDERS FAXED TO [facility].
--- NOTE | 2018-07-24 19:52 | NUR ---
[facility], CALLED [facility] AND THEY ARE ON THEIR WAY SOON
--- NOTE | 2018-07-24 19:56 | NUR ---
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
--- NOTE | 2018-07-25 07:30 | NUR ---
PHYSICAL THERAPY CO-SIGN I approve of the Phyical Therapy notes written above. NINA CUNHA PT
== END 2018-07-24 19:56 | disposition other institution (70) | DRG 872 ==
LOC: ED 22:00 → EDHOLD 23:50 → 4E 23:50
PROVIDERS: Family Medicine; Internal Medicine; Student in an Organized Health Care Education/Training Program; ADMIT Internal Medicine
PROC: 4B02XSZ Measurement of Cardiac Pacemaker, External Approach (ICD-10-PCS; principal; 2018-07-23)
DX: A41.51 Sepsis due to Escherichia coli [E. coli] (principal); E44.0 Moderate protein-calorie malnutrition; N39.0 Urinary tract infection, site not specified; I50.32 Chronic diastolic (congestive) heart failure; I16.1 Hypertensive emergency; D64.9 Anemia, unspecified; R73.9 Hyperglycemia, unspecified; Z16.12 Extended spectrum beta lactamase (ESBL) resistance; I25.708 Atherosclerosis of coronary artery bypass graft(s), unspecified, with other forms of angina pectoris; C61 Malignant neoplasm of prostate; G20 Parkinson's disease; R29.6 Repeated falls; E55.9 Vitamin D deficiency, unspecified; K57.90 Diverticulosis of intestine, part unspecified, without perforation or abscess without bleeding; I35.0 Nonrheumatic aortic (valve) stenosis; R07.89 Other chest pain; K21.9 Gastro-esophageal reflux disease without esophagitis; N40.0 Benign prostatic hyperplasia without lower urinary tract symptoms; E78.5 Hyperlipidemia, unspecified; E86.0 Dehydration; R00.1 Bradycardia, unspecified; R73.03 Prediabetes; R65.20 Severe sepsis without septic shock; E87.6 Hypokalemia; I11.0 Hypertensive heart disease with heart failure; Z95.0 Presence of cardiac pacemaker; I25.2 Old myocardial infarction; Z95.1 Presence of aortocoronary bypass graft; Z88.8 Allergy status to other drugs, medicaments and biological substances; Z87.01 Personal history of pneumonia (recurrent); Z90.49 Acquired absence of other specified parts of digestive tract; Z87.440 Personal history of urinary (tract) infections; Z95.3 Presence of xenogenic heart valve; Z82.0 Family history of epilepsy and other diseases of the nervous system; Z82.49 Family history of ischemic heart disease and other diseases of the circulatory system; Z83.79 Family history of other diseases of the digestive system; Z79.82 Long term (current) use of aspirin; Z79.899 Other long term (current) drug therapy; Z22.322 Carrier or suspected carrier of Methicillin resistant Staphylococcus aureus; Z68.24 Body mass index [BMI] 24.0-24.9, adult

== ENCOUNTER 2018-07-25 01:26 | Emergency (ER) | payer MEDICARE ==
[~2018-07-25] VITALS: Ht 180 cm; Wt 80.3 kg
[~2018-07-25 01:26] MED LIST changes: +AQUAPHOR396 GM T; +CITALOPRAM HYDR10 MG PO; +COREG25 MG PO; +D3 DOTS2000 UNIT PO; +LIPITOR40 MG PO; +MONUROL3 G1 PO; +VISTARIL25 M2 PO
[2018-07-25 02:52] VITALS: BP 151/61
== END 2018-07-25 03:37 | disposition short-term general hospital (02) ==
LOC: ED 01:26
DX: S06.5X0A Traumatic subdural hemorrhage without loss of consciousness, initial encounter (principal); S80.212A Abrasion, left knee, initial encounter; S00.31XA Abrasion of nose, initial encounter; I25.10 Atherosclerotic heart disease of native coronary artery without angina pectoris; K21.9 Gastro-esophageal reflux disease without esophagitis; E78.5 Hyperlipidemia, unspecified; I11.0 Hypertensive heart disease with heart failure; I50.32 Chronic diastolic (congestive) heart failure; Z88.8 Allergy status to other drugs, medicaments and biological substances; Z79.899 Other long term (current) drug therapy; Z79.82 Long term (current) use of aspirin; W06.XXXA Fall from bed, initial encounter; Y93.89 Activity, other specified; Y92.122 Bedroom in nursing home as the place of occurrence of the external cause; Y99.8 Other external cause status

== ENCOUNTER 2018-08-01 11:51 | Emergency (ER) | payer MEDICARE ==
--- NOTE | ~2018-08-01 | EKG ---
[place], [place] ELECTROCARDIOGRAM REPORT NAME: NORMA JAIN UNIT #: [id number] ROOM: DOCTOR: PIETER DRAFT REPORT BIRTHDATE: [birth year] [facility] Test Date: 2018-08-01 Test Time: 12:03:57 Pat Name: NORMA JAIN Department: Room: Gender: Distillation Operator Helper: Marlene Sousa : 1940 Requested By: DAVID ARNETT Order Number: [id number] Reading MD: Farhad Singh MD Measurements Intervals [place] Rate: 83 P: 76 [place]: 213 QRS: -36 QRSD: 147 T: 132 QT: 408 QTc: 480 Interpretive Statements Atrial-sensed ventricular-paced rhythm No further analysis attempted due to paced rhythm Baseline wander in lead(s) V1 Compared to ECG 07/23/2018 04:02:10 Ventricular premature complex(es) no longer present Electronically Signed On 08-01-2018 18:28:20 PST by Farhad Singh MD CM:EKGRPT:ELECTROCARDIOGRAM REPORT 1203 1828 DAVID BARR DRAFT REPORT DAVID ARNETT DO
[2018-08-01 12:24] LABS: BASO % 0.3 % (0.0-1.0); EOS % 0.4 % (1.0-4.0); HEMATOCRIT 35.2 % (42.0-52.0); HEMOGLOBIN 12.3 g/dl (14.0-18.0); LYMPH # 1.6 10*3/uL (1.3-4.4); LYMPH % 15.1 % (27.0-41.0); MEAN CORPUSCULAR HGB 29.4 pg (27.0-31.0); MEAN CORPUSCULAR HGB CONC 34.9 g/dl (33.0-37.0); MEAN PLATELET VOLUME 9.3 fl (9.6-12.3); MONO # 1.3 10*3/uL (0.1-1.0); MONO % 12.1 % (3.0-9.0); NEUT # 7.7 10*3/uL (2.3-7.9); NEUT % 71.5 % (47.0-73.0); PLATELET COUNT AUTOMATED 269 10*3/uL (130-400); RED BLOOD COUNT 4.19 10*6/uL (4.50-5.90); RED CELL DISTRI WIDTH 13.2 % (0-14.5); WHITE BLOOD COUNT 10.7 10*3/uL (4.8-10.8)
[2018-08-01 12:32] LABS: ACT PARTIAL THROMBO TIME 25.9 SECONDS (20.8-31.5); INTERNATIONAL NORM RATIO 1.1 (2.0-3.5)
[2018-08-01 12:39] LABS: ALBUMIN 3.3 gm/dl (3.1-4.5); ALKALINE PHOSPHATASE 84 U/L (45-117); BUN 8 mg/dl (7-24); CHLORIDE 95 mmol/L (98-107); CREATININE 0.52 mg/dL (0.70-1.30); LIPASE 40 U/L (73-393); POTASSIUM 3.8 mmol/L (3.5-5.1); SGOT/AST 22 IU/L (3-35); SGPT/ALT 11 U/L (12-78); SODIUM 131 mmol/L (136-145); TOTAL PROTEIN 6.4 gm/dL (6.4-8.2); TROPONIN I 0.043 ng/ml (<0.045)
[2018-08-01 13:31] VITALS: BP 84/48
== END 2018-08-01 13:58 | disposition short-term general hospital (02) ==
LOC: ED 11:51
PROVIDERS: Emergency Medicine
DX: I62.9 Nontraumatic intracranial hemorrhage, unspecified (principal); I25.10 Atherosclerotic heart disease of native coronary artery without angina pectoris; E78.5 Hyperlipidemia, unspecified; K21.9 Gastro-esophageal reflux disease without esophagitis; I11.0 Hypertensive heart disease with heart failure; I50.32 Chronic diastolic (congestive) heart failure; Z88.8 Allergy status to other drugs, medicaments and biological substances; Z79.82 Long term (current) use of aspirin; Z79.899 Other long term (current) drug therapy; Z95.0 Presence of cardiac pacemaker; Z86.73 Personal history of transient ischemic attack (TIA), and cerebral infarction without residual deficits